=== PATIENT | female | born 1950 | race Caucasian/White ===

== ENCOUNTER → 2017-10-03 | Outpatient (CLI) | payer MEDICARE, MEDICAID ==
--- NOTE | 2017-10-03 11:04 | REP ---
BILATERAL MAMMOGRAM: Bilateral mammography performed in the MLO and CC projections. Comparison made with multiple prior exams, most recently 07/04/2016 and 07/17/2016. There is again a cluster of microcalcifications in the upper left breast at about 12 -o'clock position. Biopsy has been recommended for these calcifications previously. No new microcalcifications are seen bilaterally with coarse benign type calcifications present. The breast parenchyma is predominantly fatty replaced with no suspicious mass or architectural distortion. IMPRESSION: BI-RADS/ACR category 0 mammogram, incomplete. Additional imaging and/or prior mammograms for comparison. ACR 0 incomplete. Once again, there is a cluster of microcalcifications at 12 -o'clock position in the left breast. Recommend magnification views to further evaluate. Biopsy has been previously recommended for these calcifications. This mammogram was interpreted with the aid of an FDA-approved computer-aided detection system. The patient states that she/he has not had a clinical breast exam in over a year. Patient letter M0. Signed by Jose Angel Amado MD 10/03/2017 08:37 P
== END ==
LOC: M RAD 07:57
PROVIDERS: ATTEND Family Medicine
DX: Z12.31 Encounter for screening mammogram for malignant neoplasm of breast (principal); R92.0 Mammographic microcalcification found on diagnostic imaging of breast

== ENCOUNTER → 2017-10-24 | Outpatient (CLI) | payer MEDICARE, MEDICAID | LOC: M RAD 09:06 | DX: R92.0 Mammographic microcalcification found on diagnostic imaging of breast (principal) | CPT/HCPCS: 77065 ==

== ENCOUNTER → 2017-12-05 | Outpatient (CLI) | payer MEDICARE, MEDICAID ==
[~2017-12-05] MED LIST: LIDOCAINE 1% MDV 20ML VIAL As Ordered
== END ==
LOC: M RADPRO 11:54
DX: R92.0 Mammographic microcalcification found on diagnostic imaging of breast (principal); Z79.899 Other long term (current) drug therapy; Z53.9 Procedure and treatment not carried out, unspecified reason

== ENCOUNTER → 2017-12-23 | Outpatient (REF) | payer MEDICARE, MEDICAID | LOC: M LAB REF 11:39 | DX: N64.1 Fat necrosis of breast (principal) | CPT/HCPCS: 88305 ==

== ENCOUNTER → 2018-10-29 | Outpatient (CLI) | payer MEDICARE, MEDICAID ==
--- NOTE | 2018-10-29 16:28 | REPMRS ---
Patient History The patient states she has not had a clinical breast exam in over a year. Family history of breast cancer at age 50 or over in sister. Benign stereotactic core biopsy of the left breast, December 23, 2017. Digital Mammo Screening Bilat: October 29, 2018 - Exam #: [id number] Bilateral CC and MLO view(s) were taken. Technologist: Helen Miller, Technologist Prior study comparison: October 24, 2017, left breast digital mammo diagnostic unilateral performed at [facility]. October 03, 2017, bilateral digital mammo screening bilat performed at [facility]. July 04, 2016, bilateral digital mammo screening bilat performed at [facility]. FINDINGS: There are scattered fibroglandular densities. The previously noted microcalcifications in the left breast are no longer visible. A needle biopsy marker clip is seen in this location. There has been no change in the appearance of the mammogram from the prior studies. There is a mild amount of scattered fibroglandular density which is fairly symmetric. There is no interval development of dominant mass, architectural distortion, or clustered microcalcification suggestive of malignancy. Assessment: BI-RADS/ACR category 2 mammogram. Benign finding(s). Recommendation Routine screening mammogram of both breasts in 1 year (for women over age 40). This patient's Lifetime Breast Cancer RIsk is estimated at 9.8 %. This mammogram was interpreted with the aid of an FDA-approved computer-aided dectection system. Electronically Signed By: Calderon Benton MD 10/29/18 [id number]
== END ==
LOC: M RAD 13:19
PROVIDERS: ATTEND Family Medicine
DX: Z12.31 Encounter for screening mammogram for malignant neoplasm of breast (principal); Z80.3 Family history of malignant neoplasm of breast

== ENCOUNTER 2019-01-09 11:17 | Inpatient (IN) | payer MEDICARE, MEDICAID ==
[2019-01-09] MEDS ORDERED: IPRATROPIUM 0.5MG/ALBUTEROL 2.5MG INH SOL UD 3ML (DUONEB)(J7620) NEB PRN (13:00)
[2019-01-09] MEDS ORDERED: ONDANSETRON 4MG/2ML VIAL (J2405) IV PRN (13:00)
[2019-01-09 13:19] VITALS: BP 119/62
[2019-01-09 13:53] LABS: BASO % 0.1 % (0.0-1.0); HEMATOCRIT 45.1 % (36.0-47.0); HEMOGLOBIN 12.9 g/dl (12.0-15.5); LYMPH # 0.3 10^3/uL (1.5-4.5); MEAN CORPUSCULAR HEMOGLOBIN 24.5 pg (27.0-33.0); MEAN CORPUSCULAR HGB CONC 28.6 g/dl (32.0-36.5); MEAN CORPUSCULAR VOLUME 85.6 fl (80.0-96.0); MONO # 0.4 10^3/uL (0.0-0.8); NEUTROPHILS % 89.6 % (36.0-66.0); PLATELET COUNT, AUTOMATED 206 10^3/uL (150-450); RED BLOOD COUNT 5.27 10^6/uL (4.00-5.40); WHITE BLOOD COUNT 6.7 10^3/uL (4.0-10.0)
[2019-01-09] MEDS ORDERED: [UNRECOGNIZED DRUG - CODE] IV (13:56)
[2019-01-09] MEDS ORDERED: ENOX40IN3 SC (13:56)
[2019-01-09] MEDS ORDERED: NYST1POW9 TOP (13:56)
[2019-01-09] MEDS ORDERED: LISI10TA4 PO (13:56)
[2019-01-09] MEDS ORDERED: BACL10TA2 PO (13:56)
[2019-01-09] MEDS ORDERED: BUPR100T3 PO (13:56)
[2019-01-09] MEDS ORDERED: METH125VL IV (13:56)
[2019-01-09] MEDS ORDERED: LISI10TA2 PO (13:56)
[2019-01-09] MEDS ORDERED: SIMV20TA2 PO (13:56)
[2019-01-09] MEDS ORDERED: TGT14DIS TOP (13:56)
[2019-01-09] MEDS ORDERED: AZIT50VL IV (13:56)
[2019-01-09] MEDS ORDERED: HYDRO50TAB PO (13:56)
[2019-01-09] MEDS ORDERED: ACET1TAB55 PO (13:56)
[2019-01-09] MEDS ORDERED: IPRA0.00 NEB (13:56)
[2019-01-09] MEDS ORDERED: TRAZ-160 PO (13:56)
[2019-01-09] MEDS ORDERED: COMBAER6 INH (13:56)
[2019-01-09] MEDS ORDERED: VITMTA PO (13:56)
[2019-01-09] MEDS ORDERED: ADV250INH INH (13:56)
[2019-01-09] MEDS ORDERED: CALC600T57 PO (13:56)
[2019-01-09] MEDS ORDERED: FLON1SPR NARES (13:56)
[2019-01-09] MEDS ORDERED: CLOT1CRE TOP (13:56)
[2019-01-09] MEDS ORDERED: [UNRECOGNIZED DRUG - CODE] IV (13:56)
[2019-01-09] MEDS: IPRATROPIUM 0.5MG/ALBUTEROL 2.5MG INH SOL UD 3ML (DUONEB)(J7620) NEB SCH ×2 (13:56→19:45)
[2019-01-09 13:58] LABS: ABG BASE EXCESS 13.6 (-2.0-2.0); ABG HCO3 42.7 MEQ/L (22.0-26.0); ABG O2 SATURATION 97.9 % (95.0-99.0); ABG PARTIAL PRESSURE O2 99.5 mmHg (75.0-100.0); ABG STANDARD HCO3 37.5 MEQ/L (22.0-26.0); ABG TOTAL CO2 45.1 MEQ/L (23.0-31.0); ABG pH (ARTERIAL) 7.366 UNITS (7.350-7.450)
[2019-01-09 14:03] LABS: ABG PARTIAL PRESSURE CO2 76.3 mmHg (35.0-45.0)
[2019-01-09 14:05] LABS: INR 1.16
[2019-01-09 14:14] LABS: ALBUMIN 2.7 GM/DL (3.2-5.2); ALT/SGPT 38 U/L (12-78); BILIRUBIN,TOTAL 0.8 MG/DL (0.2-1.0); BLOOD UREA NITROGEN 21 MG/DL (7-18); C REACTIVE PROTEIN QUANTITATIV 3.17 MG/DL (0.00-0.30); CARBON DIOXIDE LEVEL 39 MEQ/L (21-32); CHLORIDE LEVEL 98 MEQ/L (98-107); CPK CREATINE PHOSPHOKINASE 33 U/L (26-192); CREATININE FOR GFR 0.67 MG/DL (0.55-1.30); GLOMERULAR FILTRATION RATE > 60.0 (>45); GLUCOSE, FASTING 104 MG/DL (70-100); MAGNESIUM LEVEL 1.9 MG/DL (1.8-2.4); MB/CK RELATIVE INDEX 3.33 (< OR =4); NT-PRO BNP 2413 PG/ML (<125); POTASSIUM SERUM 4.4 MEQ/L (3.5-5.1); SODIUM LEVEL 141 MEQ/L (136-145); TOTAL PROTEIN 6.9 GM/DL (6.4-8.2); TROPONIN I 0.03 NG/ML (< 0.10)
[2019-01-09 14:19] LABS: LYMPH % 3.9 % (24.0-44.0)
[2019-01-09] MEDS ORDERED: traZODone 50 MG TAB PO PRN (14:30)
--- NOTE | 2019-01-09 14:33 | REP ---
Clinical: Shortness of breath. Comparison: None. Findings: Linear fibroatelectatic change in the right mid lung zone along with bibasilar opacities (left greater than right) suggesting atelectasis and possible small layering effusions. Interstitial edema cannot be excluded. No pneumothorax. Mild cardiomegaly suggested. Impression: 1. Possible interstitial edema along with bibasilar opacities suggesting atelectasis and possible small layering effusions. 2. Linear fibro atelectatic change in the right mid/lower lung zone Electronically Signed by Eddy Pool MD 01/09/2019 02:24 P
[2019-01-09] MEDS: SENOKOT S TAB PO SCH ×2 (15:24→20:05)
[2019-01-09] MEDS: cefTRIAXone SOD 2 GM in D5W MINI-BAG PLUS 50 ML IV SCH (15:24)
[2019-01-09] MEDS: PANTOPRAZOLE 40MG TAB (PROTONIX) PO SCH (15:24)
[2019-01-09] MEDS: methylPREDNISolone INJ 125 MG/2 ML VIAL (J2930) IV SCH (15:24)
--- NOTE | 2019-01-09 15:26 | CR ---
DATE OF CONSULTATION: 01/09/2019 Pulmonary critical care team were asked to consult on Ms. Radha Watt for assistance with BiPAP management in the intensive care unit (ICU). Ms. Watt is a 68-year-old female who was transferred here from [facility] for acute hypoxic and hypercapnic respiratory failure requiring BiPAP. The patient states that she had been in her normal state of health and went to a regular schedule doctor's appointment with her PCP on Saturday and was found to be hypoxic with an oxygen saturation of 66%. She was transferred immediately to the emergency department at [facility] and admitted with acute hypoxic and hypercarbic respiratory failure. During the course of her treatments at [facility] she required BiPAP therapy and plans were made for the patient to be transferred to [facility] for treatments of her respiratory failure and BiPAP management. We were asked by the patient's attending hear at [facility], Dr. Farley, for on assistance with BiPAP management and therefore were consulted for that. The patient was initiated on BiPAP 31/05 here at [facility]. Her oxygen saturations improved and she reports that she is feeling good without any significant shortness of breath. The patient did not believe that she has had any history of respiratory issues when asked. However, according to her history and physical from [facility], chronic obstructive pulmonary disease (COPD) is listed and she is on Advair and Combivent as an outpatient. The patient states that she smoked a pack a day for about 48 years. However, within the last year or so she has cut back to what she states is a few cigarettes a day. It looks like she was also felt to have some volume overload at [facility] and did receive some diuresis. Dr. Ferris and I reviewed the patient's chest CT and it did show apical predominant emphysema along with increased vascular markings. There was also consolidation at the right lower lobe with air bronchograms that was consistent with atelectasis versus pneumonia. The patient also had cardiomegaly and enlarged right and left atrium. Radiologist had noted no pulmonary emboli. However, upon Dr. Ferris and my review, it is felt we cannot definitively exclude pulmonary embolus (PE) due to too much artifact. It is noted, though, as the patient had been diuresed and started on BiPAP, her oxygen saturations have improved. Plan from the attending is to cover the patient with deep venous thrombosis (DVT) prophylaxis. Patient states that prior to going to her regular scheduled doctor's appointments prior to being admitted, she states she had not had any recent respiratory infections or problems with her breathing. She denies any fevers or chills, night sweats or unexplained weight loss. The patient did note some increased lower extremity edema which has improved with diuresis. She denies any sick contacts or exposure to any anyone with any known respiratory illnesses recently. REVIEW OF SYSTEMS: The patient denies fevers, chills, night sweats, unexplained weight loss. She denies vision changes. She denies headaches. The patient denies shortness of breath or hemoptysis. Heart: The patient denies chest pain or palpitations. She states she does not see a heart doctor. She does note a history of edema. Gastrointestinal (GI): The patient denies nausea, vomiting, diarrhea. Genitourinary (): The patient denies urinary issues. Endocrine: The patient denies diabetes or thyroid problems. Neuro: Patient denies weakness or headaches. Sleep: The patient denies daytime somnolence or witnessed apneas. She does note that she snores. PAST MEDICAL HISTORY: This is taken from the patient's H and P from [place]. Past medical history includes: Hyperlipidemia. COPD. Hypertension. Obesity. Tobacco use. Depression. Osteoporosis. Vitamin D deficiency. Chronic back pain. PAST SURGICAL HISTORY: Past surgical history includes: Cholecystectomy. Tubal ligation. Left breast biopsy. FAMILY HISTORY: Noncontributory. SOCIAL HISTORY: Smoker one pack a day for 48 years. The patient states that she has cut down to a few cigarettes a day over the last year or so. The patient lives along in an apartment [place]. She denies alcohol or illicit drug use. She denies pets. ALLERGIES: NO KNOWN DRUG ALLERGIES. HOME MEDICATIONS: - Tylenol as needed. - simvastatin 20 mg by mouth nightly - Flonase as needed - trazodone 25 mg by mouth nightly as needed - calcium with vitamin D - hydroxyzine 50 mg by mouth every 6 hours as needed. - nystatin powder as needed - clotrimazole cream as needed - multivitamin daily - Advair 250/50 one puff twice a day - lisinopril/hydrochlorothiazide 10/12.5 mg one tablet by mouth daily - bupropion 100 mg by mouth daily. - Combivent four times a day as needed - baclofen 10 mg by mouth three times a day PHYSICAL EXAMINATION VITALS: Temperature 99.3, pulse 91, respiratory rate 22, blood pressure is 119/62, pulse ox is 95% on BiPAP 18/8 with FiO2 of 35. GENERAL: The patient is alert and oriented. She has a BiPAP mask on her face. She speaks in complete sentences. HEENT: Head is normocephalic, atraumatic. Moist mucous membranes. NECK: Neck is supple. Mild jugular venous distention (JVD). No lymphadenopathy. Trachea is midline. CARDIOVASCULAR: Regular rate and rhythm. S1, S2. PULMONARY: The patient has decreased breath sounds. There is scattered wheezing throughout both lungs. No accessory muscle use. ABDOMEN: Positive bowel sounds, soft, nontender. The patient does have large abdominal hernia with no tenderness to palpation. No rebound, no guarding. No obvious splenomegaly, however, this is difficult to elicit due to body habitus. EXTREMITIES: No edema. There are stasis dermatitis changes in the bilateral distal lower extremities. NEURO: Patient demonstrates bilateral upper extremity tremor consistent with asterixis. She did demonstrate some lower extremity clonus. LABS: WBC 6.7, hemoglobin 12.9, hematocrit 45.1, platelets 206. Sodium 144, potassium 4.4, chloride 98, carbon dioxide 39, BUN 21, creatinine 0.67, glucose 104, calcium 9.0, magnesium 1.9, total bili 0.8, AST 17, ALT 38, alk phos 62, CK 33, CK-MB 1.0, CK-MB relative index is 3.33. Troponin I is 0.03, CRP is 3.17. BNP 2413, total protein 6.9, albumin 2.7. Blood gas pH 7.366, pCO2 is 76.3, pO2 is 99.5, HCO3 is 42.7. Blood cultures are currently pending. Chest CT from 01/07/2019 from [facility]. As noted above in the HPI shows predominantly apical emphysema along with increased vascular markings and blunt vasculature. There is consolidation of the right lower lobe with air bronchograms consistent with atelectasis versus pneumonia. There is cardiomegaly and enlarge right left atrium. Dr. Ferris cannot exclude PE as there is too much artifact. ASSESSMENT/PLAN 1. Acute hypoxic and hypercarbic respiratory failure. We are consulted by the primary medical team to help manage to help manage BiPAP. Currently the patient is on BiPAP 31/05. Will continue to monitor this and make adjustments as warranted. 2. Abnormal chest CT: The patient does have significant cardiomegaly with enlargement of the right and left atrium. Would consider echocardiogram. Will defer this to attending. Additionally, Dr. Ferris could not exclude a PE based on the chest CT angio from [place] as there is too much artifact. However, with diuresis at [facility] O2 sat has improved. The patient should be covered with DVT prophylaxis. Could consider Doppler ultrasounds of the legs but will defer this to attending.
[2019-01-09 16:00] VITALS: BP 109/56
[2019-01-09] MEDS: AZITHROMYCIN INJ 500 MG, VIAL MATE ADAPTER 1 EACH in D5W 250 ML IV SCH (16:17)
[2019-01-09] MEDS: FUROSEMIDE 40 MG/4 ML VIAL (J1940) IV SCH (17:43)
[2019-01-09 19:44] LABS: MB/CK RELATIVE INDEX 3.57 (< OR =4); TROPONIN I 0.03 NG/ML (< 0.10)
[2019-01-09 20:00] VITALS: BP 129/94
[2019-01-09] MEDS: NICOTINE 21MG/24HR 1 EA TRANSDERMAL TD SCH (20:04)
[2019-01-09] MEDS: NYSTATIN 100,000 UNITS/GM TOPICAL PWD 15 GM TOP SCH (20:05)
[2019-01-09] MEDS: SIMVASTATIN 20 MG TAB PO SCH (20:05)
--- NOTE | 2019-01-09 20:42 | HPE ---
DATE OF ADMISSION: 01/09/2019 PRIMARY CARE PROVIDER: Dr. Au CHIEF COMPLAINT: Hypoxia, shortness of breath. HISTORY OF PRESENT ILLNESS: This is a 68-year-old female patient with underlying medical history of dyslipidemia, hypertension, chronic obstructive pulmonary disease (COPD), active smoker, initially admitted to [facility] with complaints of hypoxia, was seen in primary care provider's office with oxygen saturation of 66%, subsequently sent to [facility] to be admitted. Placed on 4 liters nasal cannula. The patient was admitted on 01/07/2019. The patient was diuresed, received steroids, as well as antibiotics. Despite treatment, the patient's condition worsened. ABG was done showing mild hypercarbia and also hypoxia. Subsequently, patient was placed on bilevel positive airway pressure (BIPAP) overnight. Despite being on BIPAP and diuresis, the patient did not improving, showing slightly worsening hypercarbia, pH of 7.29 and CO2 of 80s. Subsequently, request was made for the patient to be transferred to [facility] [place]. Upon arrival, the patient has asterixis and tremors, restless and anxious. Denies any chest pain, pressure or discomfort. Reports shortness of breath. Denies any nausea or vomiting. Reported hungry and thirsty. At baseline, the patient does not see a open die inspector, does not use CPAP or BiPAP at home and is not on oxygen, is fully compliant, does not see a correctional officer, no history of coronary arterial disease, heart attack or stroke. ALLERGIES: No known drug allergies. PAST MEDICAL HISTORY: 1. Dyslipidemia. 2. Insomnia. 3. Osteoporosis. 4. Morbid obesity. 5. Vitamin D deficiency. 6. Chronic back pain with degenerative lumbar and paravertebral discs. 7. COPD. 8. Hypertension. 9. Morbid obesity. 10. Smoking. 11. Recurrent urinary tract infection (UTI). 12. Depression. PAST SURGICAL HISTORY: 1. Cholecystectomy. 2. Tubal ligation. 3. Left breast surgery. FAMILY HISTORY: Mother with hypertension. SOCIAL HISTORY: Smokes one pack per day since she was 20 years old. Denies alcohol use. Lives at home alone in [place]. Baseline ambulating with a walker. REVIEW OF SYSTEMS: Reported shortness of breath and cough productive of yellow phlegm. All other review of systems are negative. HOME MEDICATIONS: - acetaminophen 650 mg by mouth every 4 hours as needed - DuoNeb three times a day as needed - Combivent four times a day as needed - azithromycin was given at [place], 500 mg IV daily - Baclofen 10 mg by mouth three times a day - bupropion 100 mg by mouth daily - calcium and vitamin D by mouth daily - Rocephin was given 1 gram IV daily - clotrimazole 1% cream twice a day topical as needed - Lovenox at [place] 40 mg subcutaneously daily - Flonase daily as needed was given - Lasix 60 mg IV twice a day - hydroxyzine 50 mg by mouth every 6 hours as needed - Lisinopril 10 mg by mouth daily was given, the patient was on Lisinopril and hydrochlorothiazide combination 10/12.5 mg by mouth daily - Solu-Medrol 60 mg IV every 8 hours at [place] - multivitamin by mouth daily - nicotine patch 14 mg topically daily - nystatin powder - Advair Diskus inhalation twice a day - Zocor 20 mg by mouth daily - trazodone 50 mg by mouth at night as needed PHYSICAL EXAMINATION: VITAL SIGNS: Temperature 99.3, pulse 91, respirations 22, blood pressure 119/62, pulse oximetry 95% on BiPAP 18/8 with 35% FiO2, tidal volume in the 400 to 450 range. The patient has mild dyspnea, speaks in short phrases. Morbidly obese. HEENT: Normocephalic, atraumatic. PULMONARY: Bilateral rhonchi. Mild expiratory wheeze. CARDIAC: Regular S1, S2. Distant heart sounds. ABDOMEN: Umbilical hernia, nontender, positive bowel sounds. EXTREMITIES: Venous stasis skin changes, 1+ edema of the lower extremities. Dorsalis pedis and posterior tibialis pulses intact. Electrocardiogram (EKG) showed sinus rhythm with nonspecific changes. Poor quality test given the patient is tremulous. LABORATORY DATA: WBC 6.7, hemoglobin and hematocrit 12.9/45.1, platelets 206. Chemistry: Sodium 141, potassium 4.4, chloride 98, bicarbonate 39, BUN 21, creatinine 0.67. Cardiac enzymes negative times one. C-reactive protein 3.17. AB.36/76.3/99.5/42.7. Chest x-ray shows cardiomegaly, interstitial edema. ASSESSMENT AND PLAN: This is a 68-year-old female patient with underlying medical history of morbid obesity, smoker, dyslipidemia, hypertension, chronic obstructive pulmonary disease (COPD), recurrent urinary tract infections, depression, initially treated at [facility] for pneumonia and COPD exacerbation, found to have worsening hypoxia and also acute on chronic hypercarbic respiratory failure requiring BiPAP. The patient was transferred to [facility] [place] for pulmonary consultation. 1. Acute hypoxic respiratory failure with acute on chronic hypercarbic respiratory failure, likely secondary to acute congestive heart failure (CHF) exacerbation, likely diastolic dysfunction. Diuresis with Lasix, Good catheter, strict input and output. Serial cardiac enzymes appreciated. Aspirin 81 mg has been prescribed. Echocardiogram, telemetry monitoring, EKG is appreciated. Pulmonary on consultation. The patient is currently on bilevel positive airway pressure (BIPAP) 18/8, FiO2 of 35%, tidal volume of 400 to 450 mL. ABG is appreciated, repeat ABG ordered for tomorrow. I will take the patient off of BiPAP and do ABG 30 minutes to an hour following. We will advance diet tomorrow. Currently, the patient is placed on intermittent clear liquids when off of BiPAP. 2. Suspected left lower lobe pneumonia. Azithromycin and Rocephin. Follow up cultures. 3. Acute COPD exacerbation, likely secondary to pneumonia. Currently on BiPAP, management as above. Solu-Medrol and taper as tolerated. The patient does not have any significant wheeze. Nebulizer treatments. Advair as ordered to be continued. 4. Morbid obesity, likely component of obesity hypoventilation syndrome. BiPAP as above. Followup ABG tomorrow morning. 5. Hypertension. Continue Lisinopril. Monitor blood pressure. Continue Lasix for diuresis. Net negative Lasix protocol. 6. Smoking, counseling provided. Nicotine patch. 7. Depression. Continue home medications. 8. Dyslipidemia. Outpatient followup. Continue statin. 9. Deep vein thrombosis (DVT) prophylaxis. Heparin subcutaneously. DISPOSITION: Pending clinical improvement.
[2019-01-09] MEDS: ADVAIR HFA 115/21MCG INHALER INH SCH (21:00)
[2019-01-10] VITALS: BP 105/56
[2019-01-10] MEDS: FUROSEMIDE 40 MG/4 ML VIAL (J1940) IV SCH ×3 (00:13→17:36)
[2019-01-10] MEDS: IPRATROPIUM 0.5MG/ALBUTEROL 2.5MG INH SOL UD 3ML (DUONEB)(J7620) NEB SCH ×4 (01:23→19:39)
[2019-01-10] MEDS: methylPREDNISolone INJ 125 MG/2 ML VIAL (J2930) IV SCH (02:43)
[2019-01-10 04:00] VITALS: BP 126/68
[2019-01-10 04:58] LABS: HEMATOCRIT 42.2 % (36.0-47.0); HEMOGLOBIN 12.2 g/dl (12.0-15.5); MEAN CORPUSCULAR HEMOGLOBIN 24.8 pg (27.0-33.0); MEAN CORPUSCULAR HGB CONC 28.9 g/dl (32.0-36.5); MEAN CORPUSCULAR VOLUME 85.9 fl (80.0-96.0); PLATELET COUNT, AUTOMATED 190 10^3/uL (150-450); RED BLOOD COUNT 4.91 10^6/uL (4.00-5.40); WHITE BLOOD COUNT 6.8 10^3/uL (4.0-10.0)
[2019-01-10 05:19] LABS: BLOOD UREA NITROGEN 19 MG/DL (7-18); CALCIUM LEVEL 8.3 MG/DL (8.8-10.2); CARBON DIOXIDE LEVEL 42 MEQ/L (21-32); CHLORIDE LEVEL 96 MEQ/L (98-107); GLOMERULAR FILTRATION RATE > 60.0 (>45); GLUCOSE, FASTING 109 MG/DL (70-100); MAGNESIUM LEVEL 1.7 MG/DL (1.8-2.4); POTASSIUM SERUM 4.2 MEQ/L (3.5-5.1); SODIUM LEVEL 139 MEQ/L (136-145)
[2019-01-10] MEDS: HEPARIN SOD (PORCINE) 5000 UNITS/ML VIAL SC SCH ×3 (06:23→21:03)
[2019-01-10 07:21] LABS: ABG BASE EXCESS 13.9 (-2.0-2.0); ABG HCO3 41.4 MEQ/L (22.0-26.0); ABG O2 SATURATION 94.6 % (95.0-99.0); ABG PARTIAL PRESSURE O2 72.2 mmHg (75.0-100.0); ABG STANDARD HCO3 37.7 MEQ/L (22.0-26.0); ABG TOTAL CO2 43.4 MEQ/L (23.0-31.0)
[2019-01-10 07:24] LABS: ABG PARTIAL PRESSURE CO2 65.3 mmHg (35.0-45.0)
[2019-01-10 08:00] VITALS: BP 141/71
[2019-01-10] MEDS: MULTIVITAMINS/MINERALS THERAP 1 TAB PO SCH (08:36)
[2019-01-10] MEDS: LISINOPRIL 10 MG TAB PO SCH (08:36)
[2019-01-10] MEDS: NYSTATIN 100,000 UNITS/GM TOPICAL PWD 15 GM TOP SCH ×2 (08:37→21:03)
[2019-01-10] MEDS: ASPIRIN 81 MG ENTERIC TAB PO SCH (08:37)
[2019-01-10] MEDS: PANTOPRAZOLE 40MG TAB (PROTONIX) PO SCH (08:37)
[2019-01-10] MEDS: SENOKOT S TAB PO SCH ×2 (08:37→21:02)
[2019-01-10] MEDS ORDERED: MAG SULF 1GM/100ML (MAG RUN) 1 GM in APPROPRIATE DILUENT 1 EA IV ONE (09:00)
[2019-01-10] MEDS: ADVAIR HFA 115/21MCG INHALER INH SCH ×2 (09:31→19:39)
--- NOTE | 2019-01-10 10:13 | ECGEPIP ---
Stationary ECG Study [facility] Test Date: 2019-01-09 Pat Name: SAQIB AKY Department: Room: [place] [address] Gender: F Tong Carrier: RAFFI : 1950 Requested By: VANNA HENRY Order Number: [id number] Reading MD: Tao Colon Measurements Intervals [place] Rate: 67 P: NE: 0 QRS: 9 QRSD: 106 T: 6 QT: 376 QTc: 399 Interpretive Statements SINUS RHYTHM WITH PAC'S POOR R WAVE PROGRESSION, CONSIDER OLD AWMI NO PRIOR Electronically Signed On 01-10-2019 10:13:23 EDT by Tao Colon
--- NOTE | 2019-01-10 10:23 | ECGEPIP ---
Stationary ECG Study [facility] Test Date: 2019-01-10 Pat Name: SAQIB KAY Department: Room: [place] [address] Gender: F Oil Distributor: MARCELLA : 1950 Requested By: LIZETTE Duval Order Number: [id number] Reading MD: Tao Colon Measurements Intervals [place] Rate: 86 P: -5 FL: 186 QRS: 41 QRSD: 78 T: 66 QT: 334 QTc: 401 Interpretive Statements SINUS RHYTHM WITH FREQUENT SUPRAVENTRICULAR PREMATURE COMPLEXES POOR R WAVE PROGRESSION, CONSIDER AWMI NO CHANGE SINCE 01/09/19 Electronically Signed On 01-10-2019 10:23:04 EDT by Tao Colon
--- NOTE | 2019-01-10 11:27 | CCN ---
DATE: 01/10/2019 The patient was transferred yesterday to our ICU for critical care and hypercarbic hypoxic respiratory failure, initially admitted with just hypoxia, then had diuresis, was found to be hypercarbic and altered mental status not responding to bilevel therapy at the outside hospital. This morning, arterial blood gas shows a pH of 7.42, pCO2 of 65, PaO2 of 72. Imaging from her arrival yesterday shows poor inspiratory effort with some increased pulmonary vasculature. No evidence of infiltrate. She is actually eating lunch at bedside. Echocardiogram performed yesterday not fully interpreted; however, when I was at bedside showed a fairly decent systolic function with significant biatrial enlargement, IVC was large not compressible. Suggesting significant pulmonary hypertension. PHYSICAL EXAMINATION: Temperature is 98.8, pulse is 68 with a sinus arrhythmia. Respiratory rate is 22, blood pressure is 141/71, oxygen saturation 96% on 0.35. Intake and output 570 in, 2850 out for a not negative of 2.28 liters. General: Patient is sitting at bedside speaking in clear sentences without dyspnea. HEENT: Sclera clear and anicteric. Pupils equal, react to light. Mucous membranes moist without lesions. Oropharynx without erythema or exudate. Mallampati 4. Tongue is midline. Neck is supple. No tracheal deviation or mass. Large circumference of the neck. Lymph no cervical, supraclavicular or axillary adenopathy. Cardiac: Distant S1, S2 without audible murmur, rub or gallop. Fairly regular with occasional ectopy. Pulmonary: Clear to auscultation but decreased overall all air entry. No rales, rhonchi. Abdomen is obese, soft with eight large ventral hernia. There is no evidence of incarceration. There is no tenderness to the abdomen. There is normoactive bowel sounds. Extremities there is some crenation from diuresis with rubor of the lower extremities consistent with chronic venous stasis changes. Despite the lower extremities having crenation, the upper thighs which are more dependent in the bed that she is in, show continued pitting edema. She has pitting edema of the sacrum and of the hips. Skin: There is venous stasis changes as mentioned above, but there is also lichen sclerosis of her lower extremities with silver scaly patches of varying intensity. There is also significant candidal rashes intertrigonal and underneath the breasts bilaterally. She presented with excoriations under the breasts with deep scratches. There is also decubitus pressure areas. Laboratory evaluation shows a pH of 7.42, pCO2 of 65.3 with a PaO2 of 72. INR 1.16, sodium is 139, potassium 4.2, chloride is 96, bicarb of 42 with a BUN of 19 and creatinine of 0.70, white blood cell count is 6.8 with a hemoglobin of 12.2 with a platelet count of 190. Chest x-ray was as described above. EKG this morning shows a sinus arrhythmia without ST elevation with baseline artifact. IMPRESSION: 1. Hypercarbic respiratory failure improved with the use of bilevel noninvasive ventilation at night. The patient will be tried off noninvasive ventilation tonight with blood gas in the morning to see if she is able to tolerate being off an IV. Likely secondary to pulmonary edema; however, patient likely also has severe pulmonary hypertension with underlying emphysema. There was some question about the possibility of pneumonia. 2. Emphysema. Continue inhaled therapy. Would discontinue antibiotics after two more days. His white count is down and although there was a small amount of basilar infiltrate on the right this could have all been secondary to atelectasis. Will continue to monitor for signs and symptoms of sepsis. 3. Pulmonary hypertension likely severe in nature, probably not only from emphysema but from obesity and chronic hypoventilation at night. I would not be surprised if she has at least obstructive sleep apnea if not obesity hypoventilation and therefore should be studied as an outpatient in lab for this possibility. 4. Pulmonary edema. At this point in time she has had significant diuresis, although she still has systemic edema. Her bicarb has already increased to 42 and she had a net negative 2.28 liters yesterday. Would recommend be more cautious with diuresis. She is on a fluid restriction, salt restriction. Patient remains critically ill due to severity of respiratory illness with pulmonary edema, pulmonary hypertension, emphysema and likely acute on chronic hypercarbic hypoxic respiratory failure.
[2019-01-10 12:00] VITALS: BP 103/54
--- NOTE | 2019-01-10 14:40 | ECHO ---
DATE OF SERVICE: 01/09/2019 REFERRING PROVIDER: Dr. Farley PATIENT LOCATION: Room 3210. REASON FOR THE ECHOCARDIOGRAM: Shortness of breath. 2D MEASUREMENTS: IVS: 1.4 cm LV: 4.4 cm LVPW: 1.4 cm LA: 3.1 cm Aorta: 2.9 cm IVC: 2.7 cm DOPPLER MEASUREMENTS: Peak velocity across the aortic valve: 1.7 m/s Peak velocity across the LVOT: 0.93 m/s Mitral E: 0.70 Mitral A: 0.68, with a ratio of 1.0 Maximum tricuspid valve velocity: 3.0 m/s 2D COMMENTS: 1. Normal left ventricular size with mildly increased left ventricular wall thickness. Left ventricular systolic function is normal with a left ventricular ejection fraction (LVEF) estimated at 60-65%. 2. Normal left atrium. Normal right atrium and right ventricle. 3. The atrial septum appeared to be normal without evidence of defect or shunt. 4. Normal aortic root. 5. Small pericardial effusion noted. No evidence of cardiac tamponade. 6. Mildly calcified aortic valve with normal leaflet excursion. Minimally calcified mitral annulus with normal anterior mitral valve leaflet motion. Normal tricuspid valve and pulmonic valve. The proximal pulmonary artery branches were not well visualized. 7. The inferior vena cava is mildly enlarged, central venous pressure is probably elevated. DOPPLER: It detects mild to moderate mitral regurgitation, mild tricuspid regurgitation. The calculated pulmonary artery systolic pressure varies between 40 to 50 mmHg. Abnormal relaxation pattern was noted across the mitral valve leaflets as well as the mitral valve annulus, consistent with a delayed relaxation. IMPRESSION: 1. Normal global left ventricular systolic function with mild concentric left ventricular hypertrophy. There are some features of left ventricular diastolic dysfunction manifested by abnormal relaxation. 2. Aortic valve sclerosis with trivial aortic stenosis but no aortic regurgitation. The peak gradient across the aortic valve was 11 mmHg with a mean gradient of 6 mmHg. 3. Mild to moderate mitral regurgitation. 4. Mild tricuspid regurgitation with probably moderate pulmonary hypertension. 5. The inferior vena cava was dilated, central venous pressure might be elevated. 6. Small pericardial effusion noted, no evidence of cardiac tamponade. MTDD
[2019-01-10] MEDS: methylPREDNISolone INJ 40 MG/1 ML VIAL (J2920) IV SCH (15:23)
[2019-01-10] MEDS: cefTRIAXone SOD 2 GM in D5W MINI-BAG PLUS 50 ML IV SCH (15:25)
[2019-01-10] MEDS: AZITHROMYCIN INJ 500 MG, VIAL MATE ADAPTER 1 EACH in D5W 250 ML IV SCH (15:28)
[2019-01-10 16:00] VITALS: BP 107/55
--- NOTE | 2019-01-10 17:48 | IPNPDOC ---
Text Note Date of Service The patient was seen on 01/10/19. NOTE Feeling much improved. off bipap, tolerating PO, on 2L NC. denied chest pain, abd pain, n/v GENERAL: comfortable, NAD, speaks in full sentences HEENT: Normocephalic, atraumatic. PULMONARY: Bilateral rhonchi. no wheeze. CARDIAC: Regular S1, S2. Distant heart sounds. ABDOMEN: Umbilical hernia, nontender, positive bowel sounds. EXTREMITIES: Venous stasis skin changes, 1+ edema of the lower extremities. Dorsalis pedis and posterior tibialis pulses intact. ASSESSMENT AND PLAN: This is a 68-year-old female patient with underlying medical history of morbid obesity, smoker, dyslipidemia, hypertension, chronic obstructive pulmonary disease (COPD), recurrent urinary tract infections, depression, initially treated at [facility] for pneumonia and COPD exacerbation, found to have worsening hypoxia and also acute on chronic hypercarbic respiratory failure requiring BiPAP. The patient was transferred to [facility] for pulmonary consultation. 1. Acute hypoxic respiratory failure with acute on chronic hypercarbic respiratory failure, likely secondary to acute congestive heart failure (CHF) exacerbation, likely diastolic dysfunction. Diuresis with Lasix, Good catheter, strict input and output. Serial cardiac enzymes appreciated. Aspirin 81 mg has been prescribed. Echocardiogram, telemetry monitoring, EKG is appreciated. Pulmonary on consultation. off bipap, would keep patient off bipap tonight and get abg am. ABG this am apprecaited. tolerating diet, . 2. Suspected left lower lobe pneumonia. Azithromycin and Rocephin. Follow up cultures. crp, procalcitonin 3. Acute COPD exacerbation, likely secondary to pneumonia. management as above, Solu-Medrol and taper as tolerated. Nebulizer treatments. Advair as ordered to be continued. 4. Morbid obesity, likely component of obesity hypoventilation syndrome. BiPAP as above. Followup ABG tomorrow morning. need outpatient pulmonary followup for sleep study 5. Hypertension. Continue Lisinopril. Monitor blood pressure. Continue Lasix for diuresis. 6. Smoking, counseling provided. Nicotine patch. 7. Depression. Continue home medications. 8. Dyslipidemia. Outpatient followup. Continue statin. 9. Deep vein thrombosis (DVT) prophylaxis. Heparin subcutaneously. DISPOSITION: Pending clinical improvement. PT VS,Fishbone, I+O VS, Fishbone, I+O Laboratory Tests 01/10/19 04:46 Red Blood Count 4.91, Mean Corpuscular Volume 85.9, Mean Corpuscular Hemoglobin 24.8 L, Mean Corpuscular Hemoglobin Concent 28.9 L, Red Cell Distribution Width 17.2 H, Calcium Level 8.3 L Vital Signs Date Time Temp Pulse Resp B/P (MAP) Pulse Ox O2 Delivery O2 Flow Rate FiO2 01/10/19 16:00 98.2 79 21 107/55 (75) 91 2.0 01/10/19 05:00 35 I&O- Last 24 Hours up to 6 AM 01/10/19 06:00 Intake Total 2070 ml Output Total 5605 ml Balance -3535 ml VANNA HENRY MD Jan 10, 2019 17:48
[2019-01-10 20:00] VITALS: BP 126/67
[2019-01-10] MEDS: SIMVASTATIN 20 MG TAB PO SCH (21:02)
[2019-01-10] MEDS: NICOTINE 21MG/24HR 1 EA TRANSDERMAL TD SCH (21:02)
[2019-01-11] VITALS: BP 118/59
[2019-01-11] MEDS: methylPREDNISolone INJ 40 MG/1 ML VIAL (J2920) IV SCH (03:04)
[2019-01-11] MEDS: IPRATROPIUM 0.5MG/ALBUTEROL 2.5MG INH SOL UD 3ML (DUONEB)(J7620) NEB SCH ×4 (03:04→20:00)
[2019-01-11 04:00] VITALS: BP 147/68
[2019-01-11 05:05] LABS: HEMATOCRIT 44.4 % (36.0-47.0); HEMOGLOBIN 12.9 g/dl (12.0-15.5); MEAN CORPUSCULAR HEMOGLOBIN 24.1 pg (27.0-33.0); MEAN CORPUSCULAR HGB CONC 29.1 g/dl (32.0-36.5); PLATELET COUNT, AUTOMATED 169 10^3/uL (150-450); RED BLOOD COUNT 5.35 10^6/uL (4.00-5.40); WHITE BLOOD COUNT 7.4 10^3/uL (4.0-10.0)
[2019-01-11 05:16] LABS: BLOOD UREA NITROGEN 22 MG/DL (7-18); CALCIUM LEVEL 8.4 MG/DL (8.8-10.2); CARBON DIOXIDE LEVEL 42 MEQ/L (21-32); CHLORIDE LEVEL 93 MEQ/L (98-107); CREATININE FOR GFR 0.75 MG/DL (0.55-1.30); GLOMERULAR FILTRATION RATE > 60.0 (>45); GLUCOSE, FASTING 116 MG/DL (70-100); POTASSIUM SERUM 3.9 MEQ/L (3.5-5.1); SODIUM LEVEL 139 MEQ/L (136-145)
[2019-01-11] MEDS: HEPARIN SOD (PORCINE) 5000 UNITS/ML VIAL SC SCH ×3 (05:58→20:45)
[2019-01-11] MEDS: ADVAIR HFA 115/21MCG INHALER INH SCH (07:25)
[2019-01-11 07:33] LABS: ABG BASE EXCESS 14.4 (-2.0-2.0); ABG HCO3 40.4 MEQ/L (22.0-26.0); ABG O2 SATURATION 93.9 % (95.0-99.0); ABG PARTIAL PRESSURE CO2 55.4 mmHg (35.0-45.0); ABG PARTIAL PRESSURE O2 65.6 mmHg (75.0-100.0); ABG STANDARD HCO3 38.2 MEQ/L (22.0-26.0); ABG TOTAL CO2 42.1 MEQ/L (23.0-31.0); ABG pH (ARTERIAL) 7.481 UNITS (7.350-7.450)
[2019-01-11 08:00] VITALS: BP 133/60
[2019-01-11] MEDS: PANTOPRAZOLE 40MG TAB (PROTONIX) PO SCH (08:26)
[2019-01-11] MEDS: SENOKOT S TAB PO SCH ×2 (08:26→20:44)
[2019-01-11] MEDS: ASPIRIN 81 MG ENTERIC TAB PO SCH (08:26)
[2019-01-11] MEDS: MULTIVITAMINS/MINERALS THERAP 1 TAB PO SCH (08:26)
[2019-01-11] MEDS: LISINOPRIL 10 MG TAB PO SCH (08:27)
[2019-01-11] MEDS: FUROSEMIDE 40 MG/4 ML VIAL (J1940) IV SCH (08:27)
[2019-01-11] MEDS: NYSTATIN 100,000 UNITS/GM TOPICAL PWD 15 GM TOP SCH ×2 (08:28→21:44)
[2019-01-11 11:35] VITALS: BP 121/66
[2019-01-11 14:00] VITALS: BP 123/64
[2019-01-11] MEDS: cefTRIAXone SOD 2 GM in D5W MINI-BAG PLUS 50 ML IV SCH (14:13)
[2019-01-11] MEDS: AZITHROMYCIN INJ 500 MG, VIAL MATE ADAPTER 1 EACH in D5W 250 ML IV SCH (15:15)
--- NOTE | 2019-01-11 17:14 | IPNPDOC ---
Text Note Date of Service The patient was seen on 01/11/19. NOTE Feeling much improved. Tolerating PO, on 2L NC. denied chest pain, abd pain, n/v GENERAL: comfortable, NAD, speaks in full sentences HEENT: Normocephalic, atraumatic. PULMONARY: Bilateral rhonchi. decreased breath sound b/l, no wheeze. CARDIAC: Regular S1, S2. Distant heart sounds. ABDOMEN: Umbilical hernia, nontender, positive bowel sounds. EXTREMITIES: Venous stasis skin changes, 1+ edema of the lower extremities. Dorsalis pedis and posterior tibialis pulses intact. ASSESSMENT AND PLAN: This is a 68-year-old female patient with underlying medical history of morbid obesity, smoker, dyslipidemia, hypertension, chronic obstructive pulmonary disease (COPD), recurrent urinary tract infections, depression, initially treated at [facility] for pneumonia and COPD exacerbation, found to have worsening hypoxia and also acute on chronic hypercarbic respiratory failure requiring BiPAP. The patient was transferred to [facility] for pulmonary consultation. 1. Acute hypoxic respiratory failure with acute on chronic hypercarbic respiratory failure, secondary to acute congestive heart failure (CHF) exacerbation, likely diastolic dysfunction. Diuresis with Lasix, Flaherty catheter, strict input and output. Serial cardiac enzymes appreciated. Aspirin 81 mg has been prescribed. Echocardiogram, telemetry monitoring, EKG is appreciated. Pulmonary on consultation. off bipap, abg appreciated. tolerating diet, . 2. Suspected left lower lobe pneumonia. given Procalcitonin neg, off Azithromycin and Rocephin. Follow up cultures. crp 3. COPD curretly no wheeze. off steroid. Nebulizer treatments. Advair as ordered to be continued. 4. Morbid obesity, likely component of obesity hypoventilation syndrome. off Bipap ABG appreicated, need outpatient pulmonary followup for sleep study. 5. Hypertension. Continue Lisinopril. Monitor blood pressure. Continue Lasix for diuresis. 6. Smoking, counseling provided. Nicotine patch. 7. Depression. Continue home medications. 8. Dyslipidemia. Outpatient followup. Continue statin. 9. Deep vein thrombosis (DVT) prophylaxis. Heparin subcutaneously. DISPOSITION: Pending clinical improvement. PT, DC flaherty VS,Fishbone, I+O VS, Fishbone, I+O Laboratory Tests 01/11/19 04:46 Red Blood Count 5.35, Mean Corpuscular Volume 83.0, Mean Corpuscular Hemoglobin 24.1 L, Mean Corpuscular Hemoglobin Concent 29.1 L, Red Cell Distribution Width 17.2 H, Calcium Level 8.4 L Vital Signs Date Time Temp Pulse Resp B/P (MAP) Pulse Ox O2 Delivery O2 Flow Rate FiO2 01/11/19 14:00 97.3 90 17 123/64 (83) 91 3.0 01/11/19 11:32 Nasal Cannula 01/10/19 05:00 35 I&O- Last 24 Hours up to 6 AM 01/11/19 06:00 Intake Total 1460 ml Output Total 5880 ml Balance -4420 ml VANNA HENRY MD Jan 11, 2019 17:14
--- NOTE | 2019-01-11 17:20 | IPNPDOC ---
Text Note Date of Service The patient was seen on 01/11/19. NOTE Feeling much improved. Tolerating PO, on 2L NC. denied chest pain, abd pain, n/v GENERAL: comfortable, NAD, speaks in full sentences HEENT: Normocephalic, atraumatic. PULMONARY: Bilateral rhonchi. decreased breath sound b/l, no wheeze. CARDIAC: Regular S1, S2. Distant heart sounds. ABDOMEN: Umbilical hernia, nontender, positive bowel sounds. EXTREMITIES: Venous stasis skin changes, 1+ edema of the lower extremities. Dorsalis pedis and posterior tibialis pulses intact. ASSESSMENT AND PLAN: This is a 68-year-old female patient with underlying medical history of morbid obesity, smoker, dyslipidemia, hypertension, chronic obstructive pulmonary disease (COPD), recurrent urinary tract infections, depression, initially treated at [facility] for pneumonia and COPD exacerbation, found to have worsening hypoxia and also acute on chronic hypercarbic respiratory failure requiring BiPAP. The patient was transferred to [facility] for pulmonary consultation. 1. Acute hypoxic respiratory failure with acute on chronic hypercarbic respiratory failure, secondary to acute congestive heart failure (CHF) exacerbation, likely diastolic dysfunction, due to Pulmonary hypertension, right heart failure. Diuresis with Lasix, dose reduced, given sig urine output, Flaherty catheter, strict input and output. Serial cardiac enzymes appreciated. Aspirin 81 mg has been prescribed. Echocardiogram, telemetry monitoring, EKG is appreciated. Pulmonary on consultation. off bipap, abg appreciated. tolerating diet, . 2. Suspected left lower lobe pneumonia. given Procalcitonin neg, off Azithromycin and Rocephin. Follow up cultures. crp 3. COPD, emphysema, curretly no wheeze. off steroid. Nebulizer treatments. Advair as ordered to be continued. 4. Morbid obesity, likely component of obesity hypoventilation syndrome. off Bipap ABG appreicated, need outpatient pulmonary followup for sleep study. 5. Hypertension. Continue Lisinopril. Monitor blood pressure. Continue Lasix for diuresis. 6. Smoking, counseling provided. Nicotine patch. 7. Depression. Continue home medications. 8. Dyslipidemia. Outpatient followup. Continue statin. 9. Deep vein thrombosis (DVT) prophylaxis. Heparin subcutaneously. DISPOSITION: Pending clinical improvement. PT, DC flaherty VS,Jaydene, I+O VS, Ceciliobone, I+O Laboratory Tests 01/11/19 04:46 Red Blood Count 5.35, Mean Corpuscular Volume 83.0, Mean Corpuscular Hemoglobin 24.1 L, Mean Corpuscular Hemoglobin Concent 29.1 L, Red Cell Distribution Width 17.2 H, Calcium Level 8.4 L Vital Signs Date Time Temp Pulse Resp B/P (MAP) Pulse Ox O2 Delivery O2 Flow Rate FiO2 01/11/19 14:00 97.3 90 17 123/64 (83) 91 3.0 01/11/19 11:32 Nasal Cannula 01/10/19 05:00 35 I&O- Last 24 Hours up to 6 AM 01/11/19 06:00 Intake Total 1460 ml Output Total 5880 ml Balance -4420 ml VANNA HENRY MD Jan 11, 2019 17:20
[2019-01-11] MEDS: ACETAMINOPHEN 325 MG TAB PO PRN (18:15)
[2019-01-11] MEDS: NICOTINE 21MG/24HR 1 EA TRANSDERMAL TD SCH (20:43)
[2019-01-11] MEDS: SIMVASTATIN 20 MG TAB PO SCH (20:44)
[2019-01-11] MEDS: ADVAIR HFA 230/21MCG INHALER INH SCH (21:48)
[2019-01-11 22:00] VITALS: BP 124/71
[2019-01-12] MEDS: IPRATROPIUM 0.5MG/ALBUTEROL 2.5MG INH SOL UD 3ML (DUONEB)(J7620) NEB SCH ×4 (00:39→20:00)
[2019-01-12] MEDS: HEPARIN SOD (PORCINE) 5000 UNITS/ML VIAL SC SCH ×3 (05:54→22:36)
[2019-01-12 06:00] VITALS: BP 122/70
[2019-01-12 07:35] LABS: HEMATOCRIT 47.4 % (36.0-47.0); HEMOGLOBIN 13.8 g/dl (12.0-15.5); MEAN CORPUSCULAR HEMOGLOBIN 24.6 pg (27.0-33.0); MEAN CORPUSCULAR HGB CONC 29.1 g/dl (32.0-36.5); MEAN CORPUSCULAR VOLUME 84.3 fl (80.0-96.0); PLATELET COUNT, AUTOMATED 178 10^3/uL (150-450); RED BLOOD COUNT 5.62 10^6/uL (4.00-5.40); WHITE BLOOD COUNT 5.6 10^3/uL (4.0-10.0)
[2019-01-12 07:59] LABS: BLOOD UREA NITROGEN 19 MG/DL (7-18); CALCIUM LEVEL 8.5 MG/DL (8.8-10.2); CARBON DIOXIDE LEVEL 43 MEQ/L (21-32); CHLORIDE LEVEL 95 MEQ/L (98-107); CREATININE FOR GFR 0.71 MG/DL (0.55-1.30); GLOMERULAR FILTRATION RATE > 60.0 (>45); GLUCOSE, FASTING 78 MG/DL (70-100); MAGNESIUM LEVEL 2.1 MG/DL (1.8-2.4); POTASSIUM SERUM 3.9 MEQ/L (3.5-5.1); SODIUM LEVEL 140 MEQ/L (136-145)
[2019-01-12] MEDS: ADVAIR HFA 230/21MCG INHALER INH SCH ×2 (08:01→20:37)
[2019-01-12] MEDS ORDERED: FUROSEMIDE 40 MG/4 ML VIAL (J1940) IV SCH (09:00)
[2019-01-12] MEDS: SENOKOT S TAB PO SCH ×2 (10:02→20:23)
[2019-01-12] MEDS: NYSTATIN 100,000 UNITS/GM TOPICAL PWD 15 GM TOP SCH ×2 (10:02→20:23)
[2019-01-12] MEDS: ASPIRIN 81 MG ENTERIC TAB PO SCH (10:03)
[2019-01-12] MEDS: PANTOPRAZOLE 40MG TAB (PROTONIX) PO SCH (10:03)
[2019-01-12] MEDS: MULTIVITAMINS/MINERALS THERAP 1 TAB PO SCH (10:03)
[2019-01-12] MEDS: LISINOPRIL 10 MG TAB PO SCH ×2 (10:05→10:10)
[2019-01-12] MEDS: ACETAMINOPHEN 325 MG TAB PO PRN (10:38)
[2019-01-12] MEDS: MIRALAX *UNIT DOSE* 17GM PACKET PO SCH (12:14)
--- NOTE | 2019-01-12 13:34 | IPNPDOC ---
Date Seen The patient was seen on 01/12/19. Progress Note SUBJECTIVE: Patient is a 68-year-old female who was admitted for acute on chronic hypercarbic respiratory failure requiring BiPAP. [facility] comfortably on the bed properly answering questions in no acute distress. States that she is feeling relatively fine and slept relatively well with the exception of waking up at midnight for she desatted to the 80s percent. When she was placed on oxygen 3 L she is satting appropriately between 80-92%. Was reported that the patient needs a 3 person assist to get out of bed that is why they've been using a bedpan for bowel movements. Patient states that since she's been on the floor she is unable to use the bedpan for she would like to go to the toilet instead. She reports no abdominal pain nausea vomiting diarrhea. She denies any worsening shortness of breath chest pain. She continues to work with PT and possibly will need oxygen during the daytime upon discharge. OBJECTIVE PHYSICAL EXAMINATION: VITAL SIGNS: Please see below. GENERAL: 68-year-old female alert and oriented 3 does not appear in acute distress able speak in full sentences with no shortness of breath HEENT: Atraumatic normocephalic pupils round and reactive nasal cannula CARDIOVASCULAR: Regular S1-S2 sounds. Distinct heart murmurs due to large body habitus no JVD RESPIRATORY: Decreased breath sounds bilaterally diffuse bibasilar rhonchi no audible wheezing ABDOMINAL: Rectus abdominis hernia above the umbilicus reducible. positive bowel sounds in all 4 quadrants obese abdomen nontender. minimal hilary inflammation under the panniculus. EXTREMITIES: Lower extremity: Venous stasis skin changes bilaterally, no edema, dorsal pedis and posterior tibialis pulses intact 2+ LABORATORY DATA, IMAGING STUDIES, MICROBIOLOGY: Please see below. Echocardiogram: 01/09/2019-Dr. Bloom IMPRESSION: 1. Normal global left ventricular systolic function with mild concentric left ventricular hypertrophy. There are some features of 2. Aortic valve sclerosis with trivial aortic stenosis but no aortic regurgitation. The peak gradient across the aortic valve was 11 mmHg with a mean gradient of 6 mmHg. 3. Mild to moderate mitral regurgitation. 4. Mild tricuspid regurgitation with probably moderate pulmonary hypertension. 5. The inferior vena cava was dilated, central venous pressure might be elevated. 6. Small pericardial effusion noted, no evidence of cardiac tamponade DVT prophylaxis ordered?: Yes heparin subcutaneous twice a day ASSESSMENT AND PLAN: Patient is a 68-year-old female who was admitted for acute on chronic hypercarbic respiratory failure requiring BiPAP. PROBLEMS: Acute hypoxic respiratory failure with acute on chronic hypercarbic respiratory failure 2/2 acute CHF exacerbation 2/2 due to Pulmonary hypertension -Pulmonary Hypertension could be secondary to hypoventilation syndrome, valvular abnormality and/or due to diastolic dysfunction -Echocardiogram did show mild tricuspid regurgitation, left ventricular diastolic dysfunction manifested by abnormal relaxation -Will need outpatient pulmonary follow up for sleep study -c/w aspirin 81 mg -Continue to work with PT possibly will need oxygen during the day upon discharge -reduced IV Lasix to once a day and discontinue Good catheter -Trend BUN/creatinine with daily BMP if bilateral crackles do not improve can consider repeat chest x-ray AP/L - Tomorrow switch to PO lasix Constipation -C/W Senokot-S 2 tabs twice a day + MiraLAX 1 packet daily History of COPD/Emphysema -stable; no wheeze. -c/w Nebulizer and Advair Morbid obesity -Will need outpatient pulmonary follow up for sleep study -Complicates care Hypertension -c/w Lisinopril and Lasix Smoking -counseling provided c/w Nicotine patch. Depression -Currently not taking home bupropion -stable continue to monitor Dyslipidemia -c/w Continue home cycle 420 mg by mouth daily at bedtime PT -Currently not safe for discharge -Possibly will need home oxygen during the day awaiting evaluation VS, I&O, 24H, Fishbone Vital Signs/I&O Vital Signs Date Time Temp Pulse Resp B/P (MAP) Pulse Ox O2 Delivery O2 Flow Rate FiO2 01/12/19 10:10 142/73 01/12/19 06:00 97.1 70 16 96 3.0 01/11/19 11:32 Nasal Cannula 01/10/19 05:00 35 I&O- Last 24 Hours up to 6 AM 01/12/19 05:59 Intake Total 1510 ml Output Total 4950 ml Balance -3440 ml Laboratory Data 24H LABS Laboratory Tests 2 01/12/19 07:21: Nucleated Red Blood Cells % (auto) 0.0, Anion Gap 2L, Glomerular Filtration Rate > 60.0, Blood Urea Nitrogen 19H, Creatinine 0.71, Sodium Level 140, Potassium Level 3.9, Chloride Level 95L, Carbon Dioxide Level 43H, Calcium Level 8.5L, Magnesium Level 2.1 CBC/BMP Laboratory Tests 01/12/19 07:21 Red Blood Count 5.62 H, Mean Corpuscular Volume 84.3, Mean Corpuscular Hemoglobin 24.6 L, Mean Corpuscular Hemoglobin Concent 29.1 L, Red Cell Distribution Width 17.6 H, Calcium Level 8.5 L Microbiology Microbiology 01/09/19 Blood Culture - Preliminary, Resulted No Growth after 48 hours. All Specime... 01/09/19 Blood Culture - Preliminary, Resulted No Growth after 48 hours. All Specime... 01/09/19 Respiratory Virus Panel (PCR) ([facility]) - Final, Complete GME ATTESTATION GME ATTESTATION My faculty preceptor for this patient encounter was physically present during the encounter and was fully available. All aspects of the patient interview, examination, medical decision making process, and medical care plan development were reviewed and approved by the faculty preceptor. The faculty preceptor is aware and concurs with the plan as stated in the body of this note and will attest to such by his/her cosignature. ATTENDING NOTE I have both independently examined this patient as well as reviewed the note. I have discussed in detail with the resident the findings and plan of treatment as documented in the residents note. GARFIELD Yeh MD, DO Jan 12, 2019 13:34 VANNA HENRY MD Jan 13, 2019 17:46
[2019-01-12 14:00] VITALS: BP 157/79
[2019-01-12 16:00] VITALS: BP 133/74
[2019-01-12] MEDS: NICOTINE 21MG/24HR 1 EA TRANSDERMAL TD SCH (20:23)
[2019-01-12] MEDS: SIMVASTATIN 20 MG TAB PO SCH (20:23)
[2019-01-12] MEDS ORDERED: SENOKOT S TAB PO SCH (21:00)
[2019-01-12 22:00] VITALS: BP 110/57
[2019-01-13] MEDS: IPRATROPIUM 0.5MG/ALBUTEROL 2.5MG INH SOL UD 3ML (DUONEB)(J7620) NEB SCH ×4 (02:37→20:00)
[2019-01-13] MEDS: HEPARIN SOD (PORCINE) 5000 UNITS/ML VIAL SC SCH ×3 (05:15→20:46)
[2019-01-13 06:00] VITALS: BP 132/70
[2019-01-13 06:38] LABS: HEMATOCRIT 44.4 % (36.0-47.0); MEAN CORPUSCULAR HEMOGLOBIN 24.5 pg (27.0-33.0); MEAN CORPUSCULAR HGB CONC 29.3 g/dl (32.0-36.5); MEAN CORPUSCULAR VOLUME 83.6 fl (80.0-96.0); PLATELET COUNT, AUTOMATED 152 10^3/uL (150-450); RED BLOOD COUNT 5.31 10^6/uL (4.00-5.40); WHITE BLOOD COUNT 5.7 10^3/uL (4.0-10.0)
[2019-01-13 06:55] LABS: BLOOD UREA NITROGEN 20 MG/DL (7-18); CALCIUM LEVEL 8.4 MG/DL (8.8-10.2); CARBON DIOXIDE LEVEL 40 MEQ/L (21-32); CHLORIDE LEVEL 96 MEQ/L (98-107); CREATININE FOR GFR 0.64 MG/DL (0.55-1.30); GLOMERULAR FILTRATION RATE > 60.0 (>45); GLUCOSE, FASTING 81 MG/DL (70-100); MAGNESIUM LEVEL 2.1 MG/DL (1.8-2.4); POTASSIUM SERUM 3.7 MEQ/L (3.5-5.1); SODIUM LEVEL 140 MEQ/L (136-145)
[2019-01-13] MEDS: ADVAIR HFA 230/21MCG INHALER INH SCH ×2 (07:39→20:59)
[2019-01-13] MEDS: MULTIVITAMINS/MINERALS THERAP 1 TAB PO SCH (08:28)
[2019-01-13] MEDS: PANTOPRAZOLE 40MG TAB (PROTONIX) PO SCH (08:28)
[2019-01-13] MEDS: ASPIRIN 81 MG ENTERIC TAB PO SCH (08:29)
[2019-01-13] MEDS: ACETAMINOPHEN 325 MG TAB PO PRN ×2 (08:29→20:45)
[2019-01-13] MEDS: MIRALAX *UNIT DOSE* 17GM PACKET PO SCH (08:30)
[2019-01-13] MEDS: SENOKOT S TAB PO SCH ×2 (08:30→20:45)
[2019-01-13] MEDS: NYSTATIN 100,000 UNITS/GM TOPICAL PWD 15 GM TOP SCH ×2 (08:38→20:46)
[2019-01-13] MEDS: LISINOPRIL 10 MG TAB PO SCH (08:38)
[2019-01-13] MEDS ORDERED: FUROSEMIDE 40 MG TAB PO SCH (09:00)
[2019-01-13 14:00] VITALS: BP 110/57
--- NOTE | 2019-01-13 14:22 | IPNPDOC ---
Date Seen The patient was seen on 01/13/19. Progress Note SUBJECTIVE: Patient is a 68-year-old female who was admitted for acute on chronic hypercarbic respiratory failure requiring BiPAP. Patient was seen and examined this morning on [facility] sitting up comfortably on the bed properly answering questions in no acute distress. States that she is feeling much better today even though she continues to use oxygen to maintain a sat of 88-92%. She's had a bowel movement yesterday and she is working with PT, who recommends that she is not safe for discharge yet and she'll possibly need rehabilitation. There is no overnight events reported. OBJECTIVE PHYSICAL EXAMINATION: VITAL SIGNS: Please see below. GENERAL: 68-year-old female alert and oriented 3 does not appear in acute distress able speak in full sentences with no shortness of breath HEENT: Atraumatic normocephalic pupils round and reactive nasal cannula CARDIOVASCULAR: Regular S1-S2 sounds. Distinct heart murmurs due to large body habitus no JVD RESPIRATORY: Decreased breath sounds bilaterally diffuse bibasilar rhonchi no audible wheezing ABDOMINAL: Rectus abdominis hernia above the umbilicus reducible. positive bowel sounds in all 4 quadrants obese abdomen nontender. minimal hilary inflammation under the panniculus. EXTREMITIES: Lower extremity: Venous stasis skin changes bilaterally, no edema, dorsal pedis and posterior tibialis pulses intact 2+ LABORATORY DATA, IMAGING STUDIES, MICROBIOLOGY: Please see below. Echocardiogram: 01/09/2019-Dr. Bloom IMPRESSION: 1. Normal global left ventricular systolic function with mild concentric left ventricular hypertrophy. There are some features of 2. Aortic valve sclerosis with trivial aortic stenosis but no aortic regurgitation. The peak gradient across the aortic valve was 11 mmHg with a mean gradient of 6 mmHg. 3. Mild to moderate mitral regurgitation. 4. Mild tricuspid regurgitation with probably moderate pulmonary hypertension. 5. The inferior vena cava was dilated, central venous pressure might be el evated. 6. Small pericardial effusion noted, no evidence of cardiac tamponade DVT prophylaxis ordered?: Yes heparin subcutaneous twice a day ASSESSMENT AND PLAN: Patient is a 68-year-old female who was admitted for acute on chronic hypercarbic respiratory failure requiring BiPAP. PROBLEMS: Acute hypoxic respiratory failure with acute on chronic hypercarbic respiratory failure 2/2 acute CHF exacerbation 2/2 due to Pulmonary hypertension -Pulmonary Hypertension could be secondary to hypoventilation syndrome, valvular abnormality and/or due to diastolic dysfunction -Echocardiogram did show mild tricuspid regurgitation, left ventricular diastolic dysfunction manifested by abnormal relaxation -Will need outpatient pulmonary follow up for sleep study -c/w aspirin 81 mg -Lasix 60 mg BID until more euvolemic and see if this helps with hypoxia. -Trend BUN/creatinine with daily BMP if hypoxia do not improve can consider repeat chest x-ray AP/L Constipation -C/W Senokot-S 2 tabs twice a day + MiraLAX 1 packet daily History of COPD/Emphysema -stable; no wheeze. -c/w Nebulizer and Advair Morbid obesity -Will need outpatient pulmonary follow up for sleep study -Complicates care Hypertension -c/w Lisinopril and Lasix Smoking -counseling provided c/w Nicotine patch. Depression -Currently not taking home bupropion -stable continue to monitor Dyslipidemia -c/w Continue home cycle 420 mg by mouth daily at bedtime PT -Currently not safe for discharge -Recommend OT and possible rehabilitation after hospitalization - PFS consult placed VS, I&O[facility] Vital Signs/I&O Vital Signs Date Time Temp Pulse Resp B/P (MAP) Pulse Ox O2 Delivery O2 Flow Rate FiO2 01/13/19 11:30 71 17 93 Nasal Cannula 2.0 01/13/19 08:38 120/57 01/13/19 06:00 98.8 01/10/19 05:00 35 I&O- Last 24 Hours up to 6 AM 01/13/19 06:00 Intake Total 1320 ml Output Total 2900 ml Balance -1580 ml Laboratory Data 24H LABS Laboratory Tests 2 01/13/19 06:15: Nucleated Red Blood Cells % (auto) 0.0, Anion Gap 4L, Glomerular Filtration Rate > 60.0, Blood Urea Nitrogen 20H, Creatinine 0.64, Sodium Level 140, Potassium Level 3.7, Chloride Level 96L, Carbon Dioxide Level 40H, Calcium Level 8.4L, Magnesium Level 2.1 CBC/BMP Laboratory Tests 01/13/19 06:15 Red Blood Count 5.31, Mean Corpuscular Volume 83.6, Mean Corpuscular Hemoglobin 24.5 L, Mean Corpuscular Hemoglobin Concent 29.3 L, Red Cell Distribution Width 17.6 H, Calcium Level 8.4 L Microbiology Microbiology 01/09/19 Blood Culture - Preliminary, Resulted No Growth after 72 hours. All specime... 01/09/19 Blood Culture - Preliminary, Resulted No Growth after 72 hours. All specime... 01/09/19 Respiratory Virus Panel (PCR) ([facility]) - Final, Complete GME ATTESTATION GME ATTESTATION My faculty preceptor for this patient encounter was physically present during the encounter and was fully available. All aspects of the patient interview, examination, medical decision making process, and medical care plan development were reviewed and approved by the faculty preceptor. The faculty preceptor is aware and concurs with the plan as stated in the body of this note and will attest to such by his/her cosignature. GARFIELD GERONIMO DO Jan 13, 2019 14:22
[2019-01-13] MEDS: FUROSEMIDE 100 MG/10 ML VIAL (J1940) IV SCH (16:56)
[2019-01-13] MEDS: SIMVASTATIN 20 MG TAB PO SCH (20:46)
[2019-01-13] MEDS: NICOTINE 21MG/24HR 1 EA TRANSDERMAL TD SCH (20:46)
[2019-01-13 22:00] VITALS: BP 104/57
[2019-01-14] MEDS: ACETAMINOPHEN 325 MG TAB PO PRN ×2 (01:35→20:48)
[2019-01-14] MEDS: IPRATROPIUM 0.5MG/ALBUTEROL 2.5MG INH SOL UD 3ML (DUONEB)(J7620) NEB SCH ×4 (01:48→20:00)
[2019-01-14] MEDS: HEPARIN SOD (PORCINE) 5000 UNITS/ML VIAL SC SCH ×3 (05:32→20:47)
[2019-01-14 06:00] VITALS: BP 118/68
[2019-01-14 06:05] LABS: HEMATOCRIT 45.4 % (36.0-47.0); HEMOGLOBIN 13.1 g/dl (12.0-15.5); MEAN CORPUSCULAR HEMOGLOBIN 24.5 pg (27.0-33.0); MEAN CORPUSCULAR HGB CONC 28.9 g/dl (32.0-36.5); MEAN CORPUSCULAR VOLUME 84.9 fl (80.0-96.0); PLATELET COUNT, AUTOMATED 128 10^3/uL (150-450); RED BLOOD COUNT 5.35 10^6/uL (4.00-5.40)
[2019-01-14 06:30] LABS: BLOOD UREA NITROGEN 20 MG/DL (7-18); CALCIUM LEVEL 8.4 MG/DL (8.8-10.2); CARBON DIOXIDE LEVEL 39 MEQ/L (21-32); CHLORIDE LEVEL 97 MEQ/L (98-107); CREATININE FOR GFR 0.66 MG/DL (0.55-1.30); GLOMERULAR FILTRATION RATE > 60.0 (>45); GLUCOSE, FASTING 80 MG/DL (70-100); MAGNESIUM LEVEL 2.2 MG/DL (1.8-2.4); POTASSIUM SERUM 3.7 MEQ/L (3.5-5.1); SODIUM LEVEL 139 MEQ/L (136-145)
[2019-01-14] MEDS: ADVAIR HFA 230/21MCG INHALER INH SCH ×2 (07:59→20:54)
[2019-01-14 09:00] VITALS: BP 120/55
[2019-01-14] MEDS: PANTOPRAZOLE 40MG TAB (PROTONIX) PO SCH (09:28)
[2019-01-14] MEDS: MIRALAX *UNIT DOSE* 17GM PACKET PO SCH (09:28)
[2019-01-14] MEDS: LISINOPRIL 10 MG TAB PO SCH (09:28)
[2019-01-14] MEDS: SENOKOT S TAB PO SCH ×2 (09:28→20:48)
[2019-01-14] MEDS: MULTIVITAMINS/MINERALS THERAP 1 TAB PO SCH (09:28)
[2019-01-14] MEDS: ASPIRIN 81 MG ENTERIC TAB PO SCH (09:28)
[2019-01-14] MEDS: NYSTATIN 100,000 UNITS/GM TOPICAL PWD 15 GM TOP SCH ×2 (09:29→20:50)
[2019-01-14] MEDS: FUROSEMIDE 100 MG/10 ML VIAL (J1940) IV SCH ×2 (09:29→16:12)
--- NOTE | 2019-01-14 12:23 | IPNPDOC ---
Date Seen The patient was seen on 01/14/19. Progress Note SUBJECTIVE: Patient is a 68-year-old female who was admitted for acute on chronic hypercarbic respiratory failure requiring BiPAP. [facility] sitting up comfortably on the bed properly answering questions in no acute distress. States she is feeling much better and is working with PT to make sure she doesn't have to go to rehab. Her breathing has improved since yesterday. She is tolerating the lasix IV, eating her meals, and denies any n/v/d/c. She has no complaints today. OBJECTIVE PHYSICAL EXAMINATION: VITAL SIGNS: Please see below. GENERAL: 68-year-old female alert and oriented 3 does not appear in acute distress able speak in full sentences with no shortness of breath HEENT: Atraumatic normocephalic pupils round and reactive nasal cannula CARDIOVASCULAR: Regular S1-S2 sounds. Distinct heart murmurs due to large body habitus no JVD RESPIRATORY: Breath sound improved. bibasilar rhonchi noted. no audible wheezing ABDOMINAL: Rectus abdominis hernia above the umbilicus reducible. positive bowel sounds in all 4 quadrants obese abdomen nontender. minimal hilary inflammation under the panniculus. EXTREMITIES: Lower extremity: Venous stasis skin changes bilaterally, no edema, dorsal pedis and posterior tibialis pulses intact 2+ LABORATORY DATA, IMAGING STUDIES, MICROBIOLOGY: Please see below. Echocardiogram: 01/09/2019-Dr. Bloom IMPRESSION: 1. Normal global left ventricular systolic function with mild concentric left ventricular hypertrophy. There are some features of 2. Aortic valve sclerosis with trivial aortic stenosis but no aortic regurgitation. The peak gradient across the aortic valve was 11 mmHg with a mean gradient of 6 mmHg. 3. Mild to moderate mitral regurgitation. 4. Mild tricuspid regurgitation with probably moderate pulmonary hypertension. 5. The inferior vena cava was dilated, central venous pressure might be elevated. 6. Small pericardial effusion noted, no evidence of cardiac tamponade DVT prophylaxis ordered?: Yes heparin subcutaneous twice a day ASSESSMENT AND PLAN: Patient is a 68-year-old female who was admitted for acute on chronic hypercarbic respiratory failure requiring BiPAP. PROBLEMS: Acute hypoxic respiratory failure with acute on chronic hypercarbic respiratory failure 2/2 acute CHF exacerbation 2/2 due to Pulmonary hypertension -Pulmonary Hypertension could be secondary to hypoventilation syndrome, valvular abnormality and/or due to diastolic dysfunction -Echocardiogram did show mild tricuspid regurgitation, left ventricular zulema stolic dysfunction manifested by abnormal relaxation -Will need outpatient pulmonary follow up for sleep study -c/w aspirin 81 mg -Lasix 60 mg BID until more euvolemic and see if this helps with hypoxia. -Trend BUN/creatinine with daily BMP if hypoxia do not improve can consider repe at chest x-ray AP/L Constipation -C/W Senokot-S 2 tabs twice a day + MiraLAX 1 packet daily History of COPD/Emphysema -stable; no wheeze. -c/w Nebulizer and Advair Morbid obesity -Will need outpatient pulmonary follow up for sleep study -possible will need home oxygen at night. -Complicates care Hypertension -c/w Lisinopril and Lasix Smoking -counseling provided c/w Nicotine patch. Depression -Currently not taking home bupropion -stable continue to monitor Dyslipidemia -c/w Continue Zocor 20 mg by mouth daily at bedtime PT -Currently not safe for discharge -Recommend OT and Home w/services VS, I&O, 24H, [facility] Vital Signs/I&O Vital Signs Date Time Temp Pulse Resp B/P (MAP) Pulse Ox O2 Delivery O2 Flow Rate FiO2 01/14/19 09:28 120/55 01/14/19 06:00 97.6 78 17 92 2.0 01/14/19 01:37 Nasal Cannula 01/10/19 05:00 35 I&O- Last 24 Hours up to 6 AM 01/14/19 06:00 Intake Total 2080 ml Output Total 2850 ml Balance -770 ml Laboratory Data 24H LABS Laboratory Tests 2 01/14/19 05:27: Nucleated Red Blood Cells % (auto) 0.0, Anion Gap 3L, Glomerular Filtration Rate > 60.0, Blood Urea Nitrogen 20H, Creatinine 0.66, Sodium Level 139, Potassium L evel 3.7, Chloride Level 97L, Carbon Dioxide Level 39H, Calcium Level 8.4L, Magnesium Level 2.2 CBC/BMP Laboratory Tests 01/14/19 05:27 Red Blood Count 5.35, Mean Corpuscular Volume 84.9, Mean Corpuscular Hemoglobin 24.5 L, Mean Corpuscular Hemoglobin Concent 28.9 L, Red Cell Distribution Width 17.5 H, Calcium Level 8.4 L Microbiology Microbiology 01/09/19 Blood Culture - Preliminary, Resulted No Growth after 72 hours. All specime... 01/09/19 Blood Culture - Preliminary, Resulted No Growth after 72 hours. All specime... 01/09/19 Respiratory Virus Panel (PCR) ([facility]ATTY) - Final, Complete GME ATTESTATION GME ATTESTATION My faculty preceptor for this patient encounter was physically present during the encounter and was fully available. All aspects of the patient interview, examination, medical decision making process, and medical care plan development were reviewed and approved by the faculty preceptor. The faculty preceptor is aware and concurs with the plan as stated in the body of this note and will attest to such by his/her cosignature. GARFIELD GERONIMO DO Jan 14, 2019 12:23
[2019-01-14 14:00] VITALS: BP 120/53
[2019-01-14] MEDS: SIMVASTATIN 20 MG TAB PO SCH (20:48)
[2019-01-14] MEDS: NICOTINE 21MG/24HR 1 EA TRANSDERMAL TD SCH (20:49)
[2019-01-14 22:00] VITALS: BP 120/60
[2019-01-15] MEDS: IPRATROPIUM 0.5MG/ALBUTEROL 2.5MG INH SOL UD 3ML (DUONEB)(J7620) NEB SCH ×4 (02:46→18:17)
[2019-01-15 06:00] VITALS: BP 134/64
[2019-01-15] MEDS: HEPARIN SOD (PORCINE) 5000 UNITS/ML VIAL SC SCH ×3 (06:18→22:30)
[2019-01-15 06:20] LABS: HEMATOCRIT 44.1 % (36.0-47.0); HEMOGLOBIN 12.8 g/dl (12.0-15.5); MEAN CORPUSCULAR HEMOGLOBIN 24.5 pg (27.0-33.0); MEAN CORPUSCULAR VOLUME 84.5 fl (80.0-96.0); PLATELET COUNT, AUTOMATED 126 10^3/uL (150-450); RED BLOOD COUNT 5.22 10^6/uL (4.00-5.40); WHITE BLOOD COUNT 7.3 10^3/uL (4.0-10.0)
[2019-01-15 06:37] LABS: BLOOD UREA NITROGEN 23 MG/DL (7-18); CALCIUM LEVEL 8.4 MG/DL (8.8-10.2); CARBON DIOXIDE LEVEL 40 MEQ/L (21-32); CHLORIDE LEVEL 96 MEQ/L (98-107); CREATININE FOR GFR 0.64 MG/DL (0.55-1.30); GLOMERULAR FILTRATION RATE > 60.0 (>45); GLUCOSE, FASTING 87 MG/DL (70-100); MAGNESIUM LEVEL 2.2 MG/DL (1.8-2.4); POTASSIUM SERUM 3.8 MEQ/L (3.5-5.1); SODIUM LEVEL 139 MEQ/L (136-145)
[2019-01-15] MEDS: ADVAIR HFA 230/21MCG INHALER INH SCH ×2 (08:02→18:18)
[2019-01-15] MEDS: LISINOPRIL 10 MG TAB PO SCH ×2 (09:00→09:46)
[2019-01-15] MEDS: FUROSEMIDE 100 MG/10 ML VIAL (J1940) IV SCH ×3 (09:00→17:13)
[2019-01-15] MEDS: SENOKOT S TAB PO SCH ×2 (09:43→21:00)
[2019-01-15] MEDS: MULTIVITAMINS/MINERALS THERAP 1 TAB PO SCH (09:43)
[2019-01-15] MEDS: ASPIRIN 81 MG ENTERIC TAB PO SCH (09:43)
[2019-01-15] MEDS: PANTOPRAZOLE 40MG TAB (PROTONIX) PO SCH (09:48)
[2019-01-15] MEDS: MIRALAX *UNIT DOSE* 17GM PACKET PO SCH (09:48)
[2019-01-15] MEDS: NYSTATIN 100,000 UNITS/GM TOPICAL PWD 15 GM TOP SCH ×2 (09:49→22:41)
[2019-01-15] MEDS: EUCERIN 120GM CREAM TOP SCH ×2 (11:25→22:40)
--- NOTE | 2019-01-15 13:33 | IPNPDOC ---
Date Seen The patient was seen on 01/15/19. Progress Note SUBJECTIVE: Patient is a 68-year-old female who was admitted for acute on chronic hypercarbic respiratory failure requiring BiPAP. Patient was seen and examined this morning on [facility] sitting up comfortably on the bed properly answering questions in no acute distress. States that she's feeling much better like to go home tomorrow. She hasn't been cleared by PT or OT. She continues to have good urine output is tolerating the IV Lasix twice a day. She does continue to get hypoxic and short of breath with ambulation even though it is improving since the first of admission. No overnight nursing events reported. OBJECTIVE PHYSICAL EXAMINATION: VITAL SIGNS: Please see below. GENERAL: 68-year-old female alert and oriented 3 does not appear in acute distress able speak in full sentences with no shortness of breath HEENT: Atraumatic normocephalic pupils round and reactive nasal cannula CARDIOVASCULAR: Regular S1-S2 sounds. Distinct heart murmurs due to large body habitus no JVD RESPIRATORY: Breath sound improved. bibasilar rhonchi noted. no audible wheezing ABDOMINAL: Rectus abdominis hernia above the umbilicus reducible. positive bowel sounds in all 4 quadrants obese abdomen nontender. minimal ihlary inflammation under the panniculus. EXTREMITIES: Lower extremity: Venous stasis skin changes bilaterally, no edema, dorsal pedis and posterior tibialis pulses intact 2+ LABORATORY DATA, IMAGING STUDIES, MICROBIOLOGY: Please see below. Echocardiogram: 01/09/2019-Dr. Bloom IMPRESSION: 1. Normal global left ventricular systolic function with mild concentric left ventricular hypertrophy. There are some features of 2. Aortic valve sclerosis with trivial aortic stenosis but no aortic regurgitation. The peak gradient across the aortic valve was 11 mmHg with a mean gradient of 6 mmHg. 3. Mild to moderate mitral regurgitation. 4. Mild tricuspid regurgitation with probably moderate pulmonary hypertension. 5. The inferior vena cava was dilated, central venous pressure might be elevated. 6. Small pericardial effusion noted, no evidence of cardiac tamponade DVT prophylaxis ordered?: Yes heparin subcutaneous twice a day ASSESSMENT AND PLAN: Patient is a 68-year-old female who was admitted for acute on chronic hypercarbic respiratory failure requiring BiPAP. PROBLEMS: Acute hypoxic respiratory failure with acute on chronic hypercarbic respiratory failure 2/2 acute CHF exacerbation 2/2 due to Pulmonary hypertension -Pulmonary Hypertension could be secondary to hypoventilation syndrome, valvular abnormality and/or due to diastolic dysfunction -Echocardiogram did show mild tricuspid regurgitation, left ventricular diastolic dysfunction manifested by abnormal relaxation -Will need outpatient pulmonary follow up for sleep study -c/w aspirin 81 mg -c/w Lasix 60 mg BID until more euvolemic and able to ambulate without hypoxia/short of breath -Trend BUN/creatinine with daily BMP Constipation -C/W Senokot-S 2 tabs twice a day + MiraLAX 1 packet daily History of COPD/Emphysema -stable; no wheeze. -c/w Nebulizer and Advair Morbid obesity -Will need outpatient pulmonary follow up for sleep study -possible will need home oxygen at night. -Complicates care Hypertension -c/w Lisinopril and Lasix Smoking -counseling provided c/w Nicotine patch. Depression -Currently not taking home bupropion -stable continue to monitor Dyslipidemia -c/w Continue Zocor 20 mg by mouth daily at bedtime PT/OT -Currently not safe for discharge -Recommend Home w/services VS, I&O, 24H, [facility] Vital Signs/I&O Vital Signs Date Time Temp Pulse Resp B/P (MAP) Pulse Ox O2 Delivery O2 Flow Rate FiO2 01/15/19 09:00 103/63 01/15/19 06:00 97.6 81 16 92 2.0 01/14/19 20:00 Nasal Cannula 01/10/19 05:00 35 I&O- Last 24 Hours up to 6 AM 01/15/19 06:00 Intake Total 1600 ml Output Total 2100 ml Balance -500 ml Laboratory Data 24H LABS Laboratory Tests 2 01/15/19 05:47: Nucleated Red Blood Cells % (auto) 0.0, Anion Gap 3L, Glomerular Filtration Rate > 60.0, Blood Urea Nitrogen 23H, Creatinine 0.64, Sodium Level 139, Potassium Level 3.8, Chloride Level 96L, Carbon Dioxide Level 40H, Calcium Level 8.4L, Magnesium Level 2.2 CBC/BMP Laboratory Tests 01/15/19 05:47 Red Blood Count 5.22, Mean Corpuscular Volume 84.5, Mean Corpuscular Hemoglobin 24.5 L, Mean Corpuscular Hemoglobin Concent 29.0 L, Red Cell Distribution Width 17.6 H, Calcium Level 8.4 L Microbiology Microbiology 01/09/19 Blood Culture - Final, Complete NO GROWTH AFTER 5 DAYS 01/09/19 Blood Culture - Final, Complete NO GROWTH AFTER 5 DAYS 01/09/19 Respiratory Virus Panel (PCR) ([facility]ATTY) - Final, Complete GME ATTESTATION GME ATTESTATION My faculty preceptor for this patient encounter was physically present during the encounter and was fully available. All aspects of the patient interview, examination, medical decision making process, and medical care plan development were reviewed and approved by the faculty preceptor. The faculty preceptor is aware and concurs with the plan as stated in the body of this note and will attest to such by his/her cosignature. GARFIELD GERONIMO DO Jan 15, 2019 13:33
[2019-01-15 14:00] VITALS: BP 141/67
[2019-01-15] MEDS: ACETAMINOPHEN 325 MG TAB PO PRN ×2 (14:13→20:31)
[2019-01-15 22:00] VITALS: BP 109/63
[2019-01-15] MEDS: SIMVASTATIN 20 MG TAB PO SCH (22:38)
[2019-01-15] MEDS: NICOTINE 21MG/24HR 1 EA TRANSDERMAL TD SCH (22:43)
[2019-01-16] MEDS: IPRATROPIUM 0.5MG/ALBUTEROL 2.5MG INH SOL UD 3ML (DUONEB)(J7620) NEB SCH ×2 (00:39→08:00)
[2019-01-16 06:00] VITALS: BP 112/63
[2019-01-16] MEDS: HEPARIN SOD (PORCINE) 5000 UNITS/ML VIAL SC SCH (06:37)
[2019-01-16 07:12] LABS: HEMATOCRIT 43.8 % (36.0-47.0); HEMOGLOBIN 12.7 g/dl (12.0-15.5); MEAN CORPUSCULAR HEMOGLOBIN 24.5 pg (27.0-33.0); MEAN CORPUSCULAR VOLUME 84.6 fl (80.0-96.0); PLATELET COUNT, AUTOMATED 128 10^3/uL (150-450); RED BLOOD COUNT 5.18 10^6/uL (4.00-5.40); WHITE BLOOD COUNT 6.6 10^3/uL (4.0-10.0)
[2019-01-16 07:38] LABS: BLOOD UREA NITROGEN 25 MG/DL (7-18); CALCIUM LEVEL 8.8 MG/DL (8.8-10.2); CARBON DIOXIDE LEVEL 38 MEQ/L (21-32); CHLORIDE LEVEL 97 MEQ/L (98-107); CREATININE FOR GFR 0.68 MG/DL (0.55-1.30); GLOMERULAR FILTRATION RATE > 60.0 (>45); GLUCOSE, FASTING 82 MG/DL (70-100); MAGNESIUM LEVEL 2.4 MG/DL (1.8-2.4); POTASSIUM SERUM 4.1 MEQ/L (3.5-5.1); SODIUM LEVEL 138 MEQ/L (136-145)
--- NOTE | 2019-01-16 07:41 | IPNPDOC ---
Date Seen The patient was seen on 01/16/19. Progress Note SUBJECTIVE: Patient is a 68-year-old female who was admitted for acute on chronic hypercarbic respiratory failure requiring BiPAP. Patient was seen and examined this morning OBJECTIVE PHYSICAL EXAMINATION: VITAL SIGNS: Please see below. GENERAL: 68-year-old female alert and oriented 3 does not appear in acute distress able speak in full sentences with no shortness of breath HEENT: Atraumatic normocephalic pupils round and reactive nasal cannula CARDIOVASCULAR: Regular S1-S2 sounds. Distinct heart murmurs due to large body habitus no JVD RESPIRATORY: Breath sound improved. bibasilar rhonchi noted. no audible wheezing ABDOMINAL: Rectus abdominis hernia above the umbilicus reducible. positive bowel sounds in all 4 quadrants obese abdomen nontender. minimal hilary inflammation under the panniculus. EXTREMITIES: Lower extremity: Venous stasis skin changes bilaterally, no edema, dorsal pedis and posterior tibialis pulses intact 2+ LABORATORY DATA, IMAGING STUDIES, MICROBIOLOGY: Please see below. Echocardiogram: 01/09/2019-Dr. Bloom IMPRESSION: 1. Normal global left ventricular systolic function with mild concentric left ventricular hypertrophy. There are some features of 2. Aortic valve sclerosis with trivial aortic stenosis but no aortic regurgitation. The peak gradient across the aortic valve was 11 mmHg with a mean gradient of 6 mmHg. 3. Mild to moderate mitral regurgitation. 4. Mild tricuspid regurgitation with probably moderate pulmonary hypertension. 5. The inferior vena cava was dilated, central venous pressure might be e levated. 6. Small pericardial effusion noted, no evidence of cardiac tamponade DVT prophylaxis ordered?: Yes heparin subcutaneous twice a day ASSESSMENT AND PLAN: Patient is a 68-year-old female who was admitted for acute on chronic hypercarbic respiratory failure requiring BiPAP. PROBLEMS: Acute hypoxic respiratory failure with acute on chronic hypercarbic respiratory failure 2/2 acute CHF exacerbation 2/2 due to Pulmonary hypertension -Pulmonary Hypertension could be secondary to hypoventilation syndrome, valvular abnormality and/or due to diastolic dysfunction -Echocardiogram did show mild tricuspid regurgitation, left ventricular diastolic dysfunction manifested by abnormal relaxation -Will need outpatient pulmonary follow up for sleep study -c/w aspirin 81 mg -c/w Lasix 60 mg BID until more euvolemic and able to ambulate without hypoxia/short of breath -Trend BUN/creatinine with daily BMP Constipation -C/W Senokot-S 2 tabs twice a day + MiraLAX 1 packet daily History of COPD/Emphysema -stable; no wheeze. -c/w Nebulizer and Advair Morbid obesity -Will need outpatient pulmonary follow up for sleep study -possible will need home oxygen at night. -Complicates care Hypertension -c/w Lisinopril and Lasix Smoking -counseling provided c/w Nicotine patch. Depression -Currently not taking home bupropion -stable continue to monitor Dyslipidemia -c/w Continue Zocor 20 mg by mouth daily at bedtime PT/OT -Currently not safe for discharge -Recommend Home w/services [facility] Vital Signs/I&O Vital Signs Date Time Temp Pulse Resp B/P (MAP) Pulse Ox O2 Delivery O2 Flow Rate FiO2 01/15/19 22:00 97.8 87 22 109/63 (78) 90 2.0 01/15/19 20:00 98 01/14/19 20:00 Nasal Cannula I&O- Last 24 Hours up to 6 AM 01/16/19 06:00 Intake Total 1140 ml Output Total 650 ml Balance 490 ml Laboratory Data 24H LABS Laboratory Tests 2 01/16/19 06:57: Nucleated Red Blood Cells % (auto) 0.0, Anion Gap 3L, Glomerular Filtration Rate > 60.0, Blood Urea Nitrogen 25H, Creatinine 0.68, Sodium Level 138, Potassium Level 4.1, Chloride Level 97L, Carbon Dioxide Level 38H, Calcium Level 8.8, Magnesium Level 2.4 CBC/BMP Laboratory Tests 01/16/19 06:57 Red Blood Count 5.18, Mean Corpuscular Volume 84.6, Mean Corpuscular Hemoglobin 24.5 L, Mean Corpuscular Hemoglobin Concent 29.0 L, Red Cell Distribution Width 18.0 H, Calcium Level 8.8 Microbiology Microbiology 01/09/19 Blood Culture - Final, Complete NO GROWTH AFTER 5 DAYS 01/09/19 Blood Culture - Final, Complete NO GROWTH AFTER 5 DAYS 01/09/19 Respiratory Virus Panel (PCR) (NATTY) - Final, Complete GME ATTESTATION GME ATTESTATION My faculty preceptor for this patient encounter was physically present during the encounter and was fully available. All aspects of the patient interview, examination, medical decision making process, and medical care plan development were reviewed and approved by the faculty preceptor. The faculty preceptor is aware and concurs with the plan as stated in the body of this note and will attest to such by his/her cosignature. GARFIELD GERONIMO DO Jan 16, 2019 07:41
[2019-01-16] MEDS: ADVAIR HFA 230/21MCG INHALER INH SCH (08:11)
[2019-01-16] MEDS: SENOKOT S TAB PO SCH (09:47)
[2019-01-16] MEDS: MIRALAX *UNIT DOSE* 17GM PACKET PO SCH (09:47)
[2019-01-16 09:48] VITALS: BP 112/63
[2019-01-16] MEDS: ASPIRIN 81 MG ENTERIC TAB PO SCH (09:48)
[2019-01-16] MEDS: MULTIVITAMINS/MINERALS THERAP 1 TAB PO SCH (09:48)
[2019-01-16] MEDS: FUROSEMIDE 100 MG/10 ML VIAL (J1940) IV SCH (09:48)
[2019-01-16] MEDS: LISINOPRIL 10 MG TAB PO SCH (09:48)
[2019-01-16] MEDS: PANTOPRAZOLE 40MG TAB (PROTONIX) PO SCH (09:48)
[2019-01-16] MEDS: EUCERIN 120GM CREAM TOP SCH (09:48)
[2019-01-16] MEDS: NYSTATIN 100,000 UNITS/GM TOPICAL PWD 15 GM TOP SCH (09:49)
[2019-01-16] MEDS ORDERED: LASI40TA9 PO (10:36)
--- NOTE | 2019-01-16 10:45 | DS.PDOC ---
Discharge Summary General Date of Admission Jan 09, 2019 at 13:02 Date of Discharge 01/16/2019 Discharge Summary PROCEDURES PERFORMED DURING STAY: Echocardiogram: 01/09/2019-Dr. Bloom IMPRESSION: 1. Normal global left ventricular systolic function with mild concentric left ventricular hypertrophy. There are some features of 2. Aortic valve sclerosis with trivial aortic stenosis but no aortic regurgita tion. The peak gradient across the aortic valve was 11 mmHg with a mean gradient of 6 mmHg. 3. Mild to moderate mitral regurgitation. 4. Mild tricuspid regurgitation with probably moderate pulmonary hypertension. 5. The inferior vena cava was dilated, central venous pressure might be elevated. 6. Small pericardial effusion noted, no evidence of cardiac tamponade ADMITTING DIAGNOSES/ DISCHARGE DIAGNOSES: 1. Acute hypoxic respiratory failure with acute on chronic hypercarbic respiratory failure, likely secondary to acute congestive heart failure (CHF) exacerbation, likely diastolic dysfunction 2. Suspected left lower lobe pneumonia. 3. Acute COPD exacerbation, likely secondary to pneumonia 4. Morbid obesity, likely component of obesity hypoventilation syndrome 5. Hypertension 6. Smoking 7. Depression 8. Dyslipidemia. COMPLICATIONS/CHIEF COMPLAINT: Hypercardiac,Hypoxic Resiratory Failure. HISTORY OF PRESENT ILLNESS: This is a 68-year-old female patient with underlying medical history of dyslipidemia, hypertension, chronic obstructive pulmonary disease (COPD), active smoker, initially admitted to [facility] with complaints of hypoxia, was seen in primary care provider's office with oxygen saturation of 66%, subsequently sent to [facility] to be admitted. Placed on 4 liters nasal cannula. The patient was admitted on 01/07/2019. The patient was diuresed, received steroids, as well as antibiotics. Despite treatment, the patient's condition worsened. ABG was done showing mild hypercarbia and also hypoxia. Subsequently, patient was placed on bilevel positive airway pressure (BIPAP) overnight. Despite being on BIPAP and diuresis, the patient did not improving, showing slightly worsening hypercarbia, pH of 7.29 and CO2 of 80s. Subsequently, request was made for the patient to be transferred to [facility]. Upon arrival, the patient has asterixis and tremors, restless and anxious. Denies any chest pain, pressure or discomfort. Reports shortness of breath. Denies any nausea or vomiting. Reported hungry and thirsty. At baseline, the patient does not see a deposition operator, does not use CPAP or BiPAP at home and is not on oxygen, is fully compliant, does not see a emergency medicine specialist, no history of coronary arterial disease, heart attack or stroke. HOSPITAL COURSE: The patient was admitted to hospitalist service. When she initially came she was placed on BiPAP and IV diuresed to achieve euvolemic status. She worked with PT and OT while admitted. Even though we have diuresed her adequately she continued continue to need oxygen while at rest. On the day of discharge she was satting 84-85% on room air without exertion. She will need home oxygen for the day and at night. Is advised that she follows up with pulmonary to have a sleep study to evaluate for obstructive sleep apnea. The patient was happy that she is being discharged today and had no complaints. All the plans were reviewed with patient before she was discharged and she is agreeable to admitting the stated to her. DISCHARGE MEDICATIONS: Please see below. ALLERGIES: Please see below. PHYSICAL EXAMINATION ON DISCHARGE: VITAL SIGNS: Please see below. GENERAL: 68-year-old female alert and oriented 3 does not appear in acute distress able speak in full sentences with no shortness of breath HEENT: Atraumatic normocephalic pupils round and reactive nasal cannula CARDIOVASCULAR: Regular S1-S2 sounds. Distinct heart murmurs due to large body habitus no JVD RESPIRATORY: Breath sound improved. bibasilar rhonchi noted (IMPROVED) no audible wheezing ABDOMINAL: Rectus abdominis hernia above the umbilicus reducible. positive bowel sounds in all 4 quadrants obese abdomen nontender. minimal hilary inflammation under the panniculus. EXTREMITIES: Lower extremity: Venous stasis skin changes bilaterally, no edema, dorsal pedis and posterior tibialis pulses intact 2+ LABORATORY DATA: Please see below. IMAGIN01/09/19 CXR Impression: 1. Possible interstitial edema along with bibasilar opacities suggesting atelectasis and possible small layering effusions. 2. Linear fibro atelectatic change in the right mid/lower lung zone ACTIVITY: As tolerated DIET: 2 g sodium diet DISPOSITION: Home with services DISCHARGE INSTRUCTIONS: 1. Follow-up with PCP in 7 days 2. Follow-up with pulmonary in 3-4 weeks 3. Follow a 2 g sodium diet when home 4. Start Lasix 40 mg twice a day 5. If symptoms return or worsen please call PCP or return to the ER for further evaluation. DISCHARGE CONDITION: Stable. TIME SPENT ON DISCHARGE: Greater than35 minutes. Vital Signs/I&Os Vital Signs Date Time Temp Pulse Resp B/P (MAP) Pulse Ox O2 Delivery O2 Flow Rate FiO2 01/16/19 09:48 112/63 01/16/19 06:00 97.8 90 20 92 2.0 01/15/19 20:00 98 01/14/19 20:00 Nasal Cannula I&O- Last 24 Hours up to 6 AM 01/16/19 06:00 Intake Total 1140 ml Output Total 1250 ml Balance -110 ml Laboratory Data Labs 24H Laboratory Tests 2 01/16/19 06:57: Nucleated Red Blood Cells % (auto) 0.0, Anion Gap 3L, Glomerular Filtration Rate > 60.0, Blood Urea Nitrogen 25H, Creatinine 0.68, Sodium Level 138, Potassium Level 4.1, Chloride Level 97L, Carbon Dioxide Level 38H, Calcium Level 8.8, Ma gnesium Level 2.4 CBC/BMP Laboratory Tests 01/16/19 06:57 Red Blood Count 5.18, Mean Corpuscular Volume 84.6, Mean Corpuscular Hemoglobin 24.5 L, Mean Corpuscular Hemoglobin Concent 29.0 L, Red Cell Distribution Width 18.0 H, Calcium Level 8.8 Microbiology Microbiology 01/09/19 Blood Culture - Final, Complete NO GROWTH AFTER 5 DAYS 01/09/19 Blood Culture - Final, Complete NO GROWTH AFTER 5 DAYS 01/09/19 Respiratory Virus Panel (PCR) ([facility]) - Final, Complete Discharge Medications Scheduled (Calcium + D3 600-200 mg-Unit) 1 Tab Tab, 1 TAB PO DAILY, (Reported) (Lisinopril/Hydrochlorothi 10-12.5 mg) 1 Tab Tab, 1 TAB PO DAILY, (Reported) HOME MED Azithromycin (Azithromycin) 500 Mg Inj, 500 MG IV DAILY, (Reported) GIVEN AT [facility] Baclofen (Baclofen) 10 Mg Tab, 10 MG PO TID, (Reported) Bupropion Hcl (Bupropion HCl Sr) 100 Mg Tab, 100 MG PO DAILY, (Reported) Ceftriaxone Sodium (Ceftriaxone Sodium) 500 Mg Inj, 1,000 MG IV DAILY, (Reported) 100ML/HR, GIVEN AT [facility] Enoxaparin Sodium (Enoxaparin Sodium) 40 Mg/0.4 Ml Inj, 40 MG SC DAILY, (Reported) GIVEN AT [facility] Furosemide (Furosemide) 10 Mg/Ml Inj, 60 MG IV BID, (Reported) GIVEN AT [facility] Lisinopril (Lisinopril) 10 Mg Tab, 10 MG PO DAILY, (Reported) GIVEN AT [facility],ON LISINOPRIL/HCTZ AT HOME Methylprednisolone (Solu-Medrol) 125 Mg/2 Ml Inj, 60 MG IV Q8H, (Reported) GIVEN AT [facility] Multivitamins *[facility] STOCKED* (Thera M Plus *[facility] STOCKED*) 1 Tab Tab, 1 TAB PO DAILY, (Reported) Nicotine (Tgt Nicotine Step Two) 14 Mg/24 Hr Dis, 1 PATCH TOP DAILY, (Reported) Nystatin (Nystatin Powder) 100,000 Unit/Gm Pow, 1 APLCT TOP BID, (Reported) UNDER ABDOMINAL FOLDS Salmeterol/Fluticasone (Advair Diskus 250-50 Mcg/Dose) 14 Puff/Inhaler Aerp, 1 PUFF INH BID, (Reported) Simvastatin (Simvastatin) 20 Mg Tab, 20 MG PO QHS, (Reported) Scheduled PRN Acetaminophen (Acetaminophen) 325 Mg Tab, 650 MG PO Q4H PRN for PAIN, (Reported) Albuterol/Ipratropium (Ipratropium Stryker/Albut 0.5-2.5 (3) mg/3Ml) 1 Kaya Kaya, 1 VIAL NEB TID PRN for SOB/WHEEZING, (Reported) Albuterol/Ipratropium (Combivent Respimat 20-100 Mcg/Act) 1 Aer Aer, 2 PUFF INH QID PRN for SHORTNESS OF BREATH, (Reported) Clotrimazole (Clotrimazole) 1 % Cre, 1 APLCT TOP BID PRN for REDNESS/IRRITATION, (Reported) UNDER BREASTS Fluticasone Propionate (Flonase Allergy Relief) 50 Mcg/Act Spr, 2 SPRAY NARES DAILY PRN for CONGESTION, (Reported) Hydroxyzine HCl (Hydroxyzine HCl) 50 Mg Tab, 50 MG PO Q6H PRN for ANXIETY, (Reported) Trazodone HCl (Trazodone HCl) 50 Mg Tab, 50 MG PO QHS PRN for SLEEP, (Reported) Allergies Coded Allergies: No Known Drug Allergies (Verified Allergy, Unknown, 01/09/19) GME ATTESTATION GME ATTESTATION My faculty preceptor for this patient encounter was physically present during the encounter and was fully available. All aspects of the patient interview, examination, medical decision making process, and medical care plan development were reviewed and approved by the faculty preceptor. The faculty preceptor is aware and concurs with the plan as stated in the body of this note and will attest to such by his/her cosignature. GARFIELD GERONIMO DO Jan 16, 2019 10:45
[2019-01-16 14:00] VITALS: BP 124/77
== END 2019-01-16 14:29 | disposition home or self-care (01) | DRG 291 ==
LOC: M ICU 13:02 → M MSPAV 01-11 11:32
PROVIDERS: ADMIT Hospitalist; ATTEND Internal Medicine
DX: I13.0 Hypertensive heart and chronic kidney disease with heart failure and stage 1 through stage 4 chronic kidney disease, or unspecified chronic kidney disease (principal); I50.33 Acute on chronic diastolic (congestive) heart failure; J96.01 Acute respiratory failure with hypoxia; J96.22 Acute and chronic respiratory failure with hypercapnia; J18.9 Pneumonia, unspecified organism; J44.1 Chronic obstructive pulmonary disease with (acute) exacerbation; E66.2 Morbid (severe) obesity with alveolar hypoventilation; I31.3 Pericardial effusion (noninflammatory); E66.01 Morbid (severe) obesity due to excess calories; F17.200 Nicotine dependence, unspecified, uncomplicated; E78.5 Hyperlipidemia, unspecified; F32.9 Major depressive disorder, single episode, unspecified; I08.3 Combined rheumatic disorders of mitral, aortic and tricuspid valves; I27.20 Pulmonary hypertension, unspecified; Z79.899 Other long term (current) drug therapy; E55.9 Vitamin D deficiency, unspecified; M51.36 Other intervertebral disc degeneration, lumbar region

== ENCOUNTER → 2020-01-27 | Outpatient (CLI) | payer MEDICARE, MEDICAID ==
[~2020-01-27] MED LIST changes: +ACET1TAB55 PO; +ADV250INH INH; +AZIT50VL IV; +BACL10TA2 PO; +BUPR100T3 PO; +CALC600T57 PO; +CEFT50VL IV; +CLOT1CRE TOP; +COMBAER6 INH; +ENOX40IN3 SC; +FLON1SPR NARES; +HYDR1TAB33 PO; +IPRA0.00 NEB; +LASI40TA9 PO; -LIDOCAINE 1% MDV 20ML VIAL As Ordered; +LISI10TA15 PO; +LISI10TA4 PO; +METH125VL IV; +NICO1DIS10 TOP; +NYST1POW9 TOP; +SIMV20TA22 PO; +TRAZ-252 PO; +VITMTA PO; +[UNRECOGNIZED DRUG - CODE] IV
== END ==
LOC: M RAD 13:00
PROVIDERS: ATTEND Family Medicine
DX: Z53.9 Procedure and treatment not carried out, unspecified reason (principal); F17.210 Nicotine dependence, cigarettes, uncomplicated

== ENCOUNTER → 2024-05-12 | Outpatient (REF) | payer MEDICARE, MEDICAID ==
[~2024-05-12] MED LIST changes: +BUPR-70 PO; -BUPR100T3 PO; -CLOT1CRE TOP; +CLOT1CRE51 TOP; -LISI10TA15 PO; +LISI10TA22 PO; +LISI10TA24 PO; -LISI10TA4 PO
[2024-05-12 11:43] LABS: HEMATOCRIT 33.1 % (36.0-47.0); HEMOGLOBIN 9.1 g/dl (12.0-15.5); MEAN CORPUSCULAR HEMOGLOBIN 23.6 pg (27.0-33.0); MEAN CORPUSCULAR HGB CONC 27.5 g/dl (32.0-36.5); PLATELET COUNT, AUTOMATED 195 10^3/uL (150-450); RED BLOOD COUNT 3.85 10^6/uL (4.00-5.40)
[2024-05-12 12:01] LABS: BLOOD UREA NITROGEN 30 MG/DL (9-23); CALCIUM LEVEL 9.2 MG/DL (8.3-10.6); CARBON DIOXIDE LEVEL 40 MMOL/L (20-31); CHLORIDE LEVEL 96 MMOL/L (98-107); CREATININE FOR GFR 0.76 MG/DL (0.55-1.30); GLOMERULAR FILTRATION RATE > 60.0 (>39); GLUCOSE, FASTING 113 MG/DL (74-106); SODIUM LEVEL 139 MMOL/L (136-145)
== END ==
LOC: SKLAB4 08:00
PROVIDERS: ATTEND Nurse Practitioner Family
DX: I50.9 Heart failure, unspecified (principal); R06.02 Shortness of breath; J98.11 Atelectasis

== ENCOUNTER → 2024-05-27 | Outpatient (REF) | payer MEDICARE, OTHER ==
[2024-05-27 11:57] LABS: EOS # 0.1 10^3/uL (0.0-0.5); EOS % 2.7 % (0.0-3.0); HEMATOCRIT 30.8 % (36.0-47.0); HEMOGLOBIN 8.2 g/dl (12.0-15.5); LYMPH # 0.4 10^3/uL (1.5-5.0); LYMPH % 12.6 % (24.0-44.0); MEAN CORPUSCULAR HGB CONC 26.6 g/dl (32.0-36.5); MEAN CORPUSCULAR VOLUME 90.3 fl (80.0-96.0); MONO # 0.4 10^3/uL (0.0-0.8); NEUTROPHILS # 2.2 10^3/uL (1.5-8.5); NEUTROPHILS % 71.4 % (36.0-66.0); PLATELET COUNT, AUTOMATED 110 10^3/uL (150-450); RED BLOOD COUNT 3.41 10^6/uL (4.00-5.40)
[2024-05-27 12:26] LABS: ALBUMIN 3.1 G/DL (3.2-5.2); ALKALINE PHOSPHATASE 96 U/L (46-116); ALT/SGPT 13 U/L (7.0-40); AST/SGOT 15 U/L (<34); BILIRUBIN,TOTAL 0.4 MG/DL (0.3-1.2); BLOOD UREA NITROGEN 13 MG/DL (9-23); CARBON DIOXIDE LEVEL > 40.0 MMOL/L (20-31); CHLORIDE LEVEL 101 MMOL/L (98-107); CREATININE FOR GFR 0.54 MG/DL (0.55-1.30); GLOMERULAR FILTRATION RATE > 60.0 (>39); GLUCOSE, FASTING 76 MG/DL (74-106); POTASSIUM SERUM 4.3 MMOL/L (3.5-5.1); SODIUM LEVEL 142 MMOL/L (136-145)
== END ==
LOC: SKLAB4 11:17
PROVIDERS: ATTEND Internal Medicine
DX: U07.1 COVID-19 (principal); I50.9 Heart failure, unspecified